=== PATIENT | male | born 1940 | race Caucasian/White ===

== ENCOUNTER 2023-04-29 08:57 | Outpatient (OUT) | payer MEDICARE, OTHER, SELFPAY ==
--- NOTE | 2023-04-29 09:35 | CA_ITS ---
Patient: JOSSELYN CLARKE Exam Date: 04/29/2023 : 1940 Gender:M Ordering : DR BEN DOHERTY Admission #: [id number] Family : Order #: [id number] CLICK HERE TO VIEW EXAM ECHOCARDIOGRAM REPORT PROCEDURE: CA ECHO DOPPLER COMPLETE INDICATIONS: Chronic diastolic heart failure, hypertension, diabetes, CABGx3 COMPARISON: None. DESCRIPTION: COMPLETE ECHOCARDIOGRAM Real-time transthoracic echocardiography with 2D, M-mode, spectral and color flow Doppler performed. QUALITY: Technical quality was good. LEFT VENTRICLE: Normal chamber size. Proximal septal hypertrophy (sigmoid septum). LV EF: Normal left ventricular ejection fraction, (>55%). No significant valvular abnormalities. DIASTOLIC: Normal diastolic function. ATRIAL SEPTUM: Visually appears intact. LEFT ATRIUM: Normal chamber size. RIGHT ATRIUM: Normal chamber size. RIGHT VENTRICLE: Normal chamber size. Normal right ventricular systolic function. TRICUSPID VALVE: Normal mobility and thickness. Mild to moderate regurgitation. Doppler studies reveal moderately (45-60) elevated right sided pressures. RVSP 47 mmHg MITRAL VALVE: Normal mobility and thickness. No evidence of mitral valve stenosis. Mild mitral annular calcification. Mild mitral regurgitation. AORTIC VALVE: Normal trileaflet appearance. Mildly calcified aortic valve. Normal leaflet mobility. No evidence of aortic valve stenosis. No aortic regurgitation. AORTIC ROOT: Normal diameter and appearance. PULMONIC VALVE: Normal thickness and mobility. No stenosis. Mild regurgitation. PERICARDIUM: No evidence of pericardial effusion. IVC: Collapses with inspirations. CONCLUSION: 1. Global left ventricular systolic function is normal; visually estimated ejection fraction is 60 to 65% 2. Normal diastolic function 3. The right ventricle is normal in size and systolic function 4. Mild to moderate tricuspid regurgitation 5. Moderately elevated right ventricular systolic pressure 6. Mild pulmonic regurgitation Adult Echocardiography Procedure Report Left Ventricle LVEDD (3.7 - 5.6 cm): 4.64 cm LVESD (2.2 - 4.0 cm): 3.14 cm LVIVS thickness (0.6 - 1.2 cm): 2.05 cm LVPW thickness (0.5 - 1.0 cm): 1.01 cm e': 0.08 m/s E - e': 7.25 LVOT Max Gradient: 2.50 mm[Hg] LVOT Area (cm2): 0.79 m/s Peak Velocity (LVOT): 0.79 m/s Mean Velocity (LVOT): 0.52 m/s LVOT Diameter 2.49 cm Left Atrium LA Volume Index (2D A2C): 28.80 ml/m2 Left Atrium Systolic Dimension: 3.63 cm Mitral Valve MV E to A Ratio: 0.63 Mitral Valve A-Wave Peak Velocity: 0.92 m/s Mitral Valve E-Wave Peak Velocity: 0.58 m/s Right Ventricle Aorta AO Root Diam: 3.51 cm Ascending Ao Diam: 3.15 cm Aortic Valve AoV Area (Peak Javed): 3.11 cm2, 3.11 cm2 AoV Area (VTI): 3.77 cm2, 3.77 cm2 Peak Velocity(Antegrade Flow): 1.24 m/s Peak Gradient(Antegrade Flow): 6.18 mm[Hg] Mean Velocity(Antegrade Flow): 0.84 m/s Mean Gradient(Antegrade Flow): 3.20 mm[Hg] Velocity Time Integral: 23.88 cm Tricuspid Valve Peak Velocity (Regurgitant Flow): 3.02 m/s, 2.87 m/s, 3.31 m/s Pulmonic Valve Peak Velocity: 1.18 m/s Peak Gradient: 5.90 mm[Hg], 5.29 mm[Hg] Right Atrium Right Atrium Systolic Pressure: 62.70 ml, 62.70 ml Dictated by: Delonte Parada M.D. on 04/29/2023 at 15:01 Approved by: Delonte Parada M.D. on 04/29/2023 at 15:06
--- NOTE | 2023-04-29 09:58 | CT_ITS ---
The [address] [address] Patient Name: JOSSELYN CLARKE MRN: [id number] date: 1940 Sex: M Assigned Patient Location: CARD Current Patient Location: CARD Accession/Order Number: [id number] Exam Date: 04/29/2023 09:48 Report Date: 04/29/2023 10:10 At the request of: BEN JUAREZ Procedure: CT head/brain wo con CT head/brain wo con, 04/29/2023 9:48 AM EDT, OH001 INDICATION: Increased Frequency Of Headache R51.9 COMPARISON: None. TECHNIQUE: CT images of the brain from skull base to vertex, including portions of the face and sinuses, were obtained without contrast. Supplemental 2D reformatted images were generated and reviewed as needed. Dose reduction techniques were achieved by using automated exposure control and/or adjustment of mA and/or kV according to patient size and/or use of iterative reconstruction technique. FINDINGS: The ventricles and sulci are within normal limits for the patient's age. There are nonspecific foci of signal alteration within the white matter most likely representing mild chronic microvascular ischemic change. No mass effect, acute hemorrhage, midline shift, hydrocephalus or exta-axial fluid collection. The basal cisterns are patent. The calvarium appears intact. There is marked mucosal thickening throughout the ethmoid sinuses, and slight mucosal thickening in the frontal sinus, sphenoid sinus and right maxillary antrum. No definite air-fluid level is seen. The mastoids are clear. CT/CT head/brain wo con IMPRESSION: No CT evidence of acute intracranial abnormality. Moderate paranasal sinus disease. Electronically authenticated by: ABDI CARDOZO Date: 04/29/2023 10:10
== END 2023-04-29 08:58 | disposition home or self-care (01) ==
LOC: CARD 08:57
PROVIDERS: PCP Internal Medicine; Visit Provider Physician Assistant
DX: R51.9 Headache, unspecified (principal); I11.0 Hypertensive heart disease with heart failure; I50.32 Chronic diastolic (congestive) heart failure; I07.1 Rheumatic tricuspid insufficiency
CPT/HCPCS: 70450; 93306

== ENCOUNTER 2023-08-24 14:09 | Outpatient (OUT) | payer MEDICARE, OTHER, SELFPAY ==
--- NOTE | 2023-08-24 14:22 | XR_ITS ---
The [address] [address] Patient Name: JOSSELYN CLARKE MRN: [id number] date: 1940 Sex: M Assigned Patient Location: [facility] Current Patient Location: Accession/Order Number: [id number] Exam Date: 08/24/2023 14:38 Report Date: 08/25/2023 22:30 At the request of: KELSY BROWN Procedure: XR lumbar spine 2-3V EXAM: XR lumbar spine 2-3V HISTORY: Chronic Low Back Pain Right Sciatica M54.41 COMPARISON: None. TECHNIQUE: 2 view lumbar spine FINDINGS: There are 5 nonrib-bearing lumbar-type vertebral bodies. Imaged sacroiliac joints are intact. Mild anterior wedging at L1. Vertebral body alignment is preserved. Multilevel degenerative disc disease most severe at L4-5 and L5-S1. Incidental note of aortic vascular calcification. Diffuse facet arthrosis most severe at the lower lumbar levels. XR/XR lumbar spine 2-3V IMPRESSION: Multilevel degenerative disc disease most severe at L4-5 and L5-S1. Electronically authenticated by: LEAH GARRETT Date: 08/25/2023 22:30
== END 2023-08-24 14:10 | disposition home or self-care (01) ==
LOC: RAD 14:11
PROVIDERS: PCP Internal Medicine; Visit Provider Internal Medicine
DX: M54.41 Lumbago with sciatica, right side (principal); G89.29 Other chronic pain; M51.36 Other intervertebral disc degeneration, lumbar region
CPT/HCPCS: 72100

== ENCOUNTER 2025-05-22 15:42 | Emergency (ER) | payer MEDICARE, OTHER, SELFPAY ==
[2025-05-22 15:50] VITALS: BP 160/64; PULSE 61; TEMP 36.4; O2SAT 95; BMI 32.5
--- NOTE | 2025-05-22 17:20 | ED.GENADUL1 ---
HPI HPI - General Adult General Chief complaint: Extremity Problem, Nontraumatic Stated complaint: CELLULITUS ON BOTH LEGS/ FEELS DIZZY Time Seen by Provider: 05/22/25 17:13 Source: patient Mode of arrival: walk-in History of Present Illness HPI narrative: 85-year-old male presents to the emergency department for red areas on both legs. His is worried he has a skin infection. He has not come into contact with any chemicals or cleaning agents and has not used any new substances or medications. She noticed them within the last day. No drainage or fever or pain. Related Data Previous Rx's ?Medication ?Instructions ?Recorded amoxicillin 875 mg-potassium 1 tab PO BID #14 tabs 05/22/25 clavulanate 125 mg tablet Allergies Allergy/AdvReac Type Severity Reaction Status Date / Time clonidine (From [employer] Allergy Severe Rash Verified 05/22/25 15:56 Review of Systems ROS Narrative A ten point review of systems is negative except as noted above. PFSH PFSH Social History Little interest or pleasure in doing things: not at all Feeling down, depressed, or hopeless: not at all Exam Narrative Exam Narrative: Nurses note and vital signs reviewed and patient is not hypoxic. General: The patient appears in no apparent distress. Patient is resting comfortably on cart. Skin: Warm, dry, no pallor noted. There are 2 well-defined areas of erythema on each of the lower extremities. They are not raised or tender or fluctuant and there is no drainage. They are mostly anterior. Head: Normocephalic, atraumatic Eye: Normal conjunctiva, no drainage Ears, Nose, Mouth, and Throat: oral mucosa is moist. Nares patent. Cardiovascular: Regular Rate and Rhythm Respiratory: Patient is in no distress, no accessory muscle use, lungs are clear to auscultation, no wheezing, rales or rhonchi Back: non-tender GI: Soft and nontender Musculoskeletal: The patient has no evidence of calf tenderness, no pitting edema, symmetrical pulses noted bilaterally Neurological: A&O x4, normal speech Psychiatric: Cooperative Constitutional Vital Signs, click to edit/add: Last Vital Signs Temp 97.5 F L 05/22/25 15:50 Pulse 61 05/22/25 15:50 Resp 20 05/22/25 15:50 BP 160/64 H 05/22/25 15:50 Pulse Ox 95 05/22/25 15:50 O2 Del Method Room Air 05/22/25 15:50 Course Vital Signs Vital signs: Vital Signs Temperature 97.5 F L 05/22/25 15:50 Pulse Rate 61 05/22/25 15:50 Respiratory Rate 20 05/22/25 15:50 Blood Pressure 160/64 H 05/22/25 15:50 Pulse Oximetry 95 05/22/25 15:50 Oxygen Delivery Method Room Air 05/22/25 15:50 Temperature 97.5 F L 05/22/25 15:50 Pulse Rate 61 05/22/25 15:50 Respiratory Rate 20 05/22/25 15:50 Blood Pressure 160/64 H 05/22/25 15:50 Pulse Oximetry 95 05/22/25 15:50 Oxygen Delivery Method Room Air 05/22/25 15:50 Medical Decision Making MDM Narrative Medical decision making narrative: Blood work is essentially normal. He was given IV Ancef and is discharged home on Augmentin. He will follow-up with his doctor in a day or 2. The possibility that this is not cellulitis was discussed. Differential Diagnosis Differential Diagnosis: Cellulitis, rash, contact dermatitis Lab Data Lab results reviewed: Yes I reviewed the patient's lab results Labs: Lab Results 05/22/25 Range/Units 17:35 WBC 8.3 (4.0-11.0) 10^3/uL RBC 3.73 L (4.70-6.10) 10^6/uL Hgb 12.0 L (14.0-18.0) g/dL Hct 34.6 L (42.0-54.0) % MCV 92.8 (80.0-94.0) fL MCH 32.2 (25.9-34.0) pg MCHC 34.7 (29.9-35.2) g/dL RDW 13.3 (11.0-15.0) % Plt Count 160 (150-450) 10^3/uL MPV 9.1 L (9.5-13.5) fL Neut % (Auto) 58.5 (43.0-75.0) % Lymph % (Auto) 22.0 (20.5-60.0) % [place] % (Auto) 14.0 H (1.7-12.0) % Eos % (Auto) 4.5 (0.9-7.0) % Baso % (Auto) 0.8 (0.2-2.0) % Neut # (Auto) 4.9 (1.4-6.5) 10^3/uL Lymph # (Auto) 1.8 (1.2-3.8) 10^3/uL [place] # (Auto) 1.2 H (0.3-0.8) 10^3/uL Eos # (Auto) 0.4 (0.0-0.7) 10^3/uL Baso # (Auto) 0.1 (0.0-0.1) 10^3/uL Abs Immat Gran (auto) 0.02 (0.00-0.03) 10^3/uL Imm/Tot Granulo (auto) 0.2 (0.0-0.5) % Sodium 142 (136-145) mmol/L Potassium 4.0 (3.5-5.1) mmol/L Chloride 105 (98-107) mmol/L Carbon Dioxide 28.7 (21.0-32.0) mmol/L Anion Gap 12.3 BUN 31.0 H (7.0-18.0) mg/dL Creatinine 1.50 H (0.70-1.30) mg/dL Est GFR ( Amer) 54 L (>=60 mL/min/1.73m^2) Est GFR (Non-Af Amer) 44 L (>=60 mL/min/1.73m^2) BUN/Creatinine Ratio 20.7 Glucose 113 H (74-106) mg/dL Calcium 9.2 (8.5-10.1) mg/dL Discharge Plan Discharge Chief Complaint: Extremity Problem, Nontraumatic Clinical Impression: Cellulitis Patient Disposition: Home, Self-Care Time of Disposition Decision: 18:40 Condition: Good Mode of Transportation: Private Vehicle Prescriptions / Home Meds: New amoxicillin-pot clavulanate 875-125 mg tablet 1 tab PO BID Qty: 14 0RF Print Language: Czech Instructions: Cellulitis (ED) Additional Instructions: Follow-up with your doctor in 1 to 2 days. Return if symptoms worsen. Referrals: KELSY BROWN [Primary Care Provider, Internal Medicine] - 1 week
--- OUTSIDE RECORDS SUMMARY | 2025-05-22 17:29 | XMS_ITS | CCD ---
Author Organization [facility] Care Team Providers Care Financial Analyst Accountant Name Role Phone PHYSICIAN, DEFAULT Unavailable Unavailable PHYSICIAN, DEFAULT Unavailable Unavailable ANN, DR DOMÍNGUEZ Admitting Unavailable ANN, DR DOMÍNGUEZ Attending Unavailable GASTON, BESSY HUNG Consulting Unavailable KEVIN, DR TIERNEY Primary Care Unavailable Gavin Najera Consulting Unavailable Gwendolyn Jackson Consulting Unavailable KEVIN, DR TIERNEY Primary Care Unavailable REQUEST, DR GORDON LISTED Admitting Unavaila ble REQUEST, DR GORDON LISTED Consulting Unavaila ble REQUEST, DR GORDON LISTED Attending Unavaila issa ROSARIO, DR TIERNEY Primary Care Unavailable REQUEST, NONE LISTED Admitting Unavaila ble REQUEST, NONE LISTED Consulting Unavaila ble REQUEST, DR GORDON LISTED Attending Unavaila issa ROSARIO, DR TIERNEY Primary Care Unavailable JAROCHO, DR DERRELL Houston Admitting Unavailable ENGELESilvia, DR DERRELL Houston Consulting Unavailable JAROCHO, DR DERRELL Houston Attending Unavailable KEVIN, DR TIERNEY Primary Care Unavailable KEVIN, DR TIERNEY Consulting Unavailable KEVIN, DR TIERNEY Attending Unavailable KEVIN, DR TIERNEY Admitting Unavailable HOWIE ROSARIO Primary Care Unavailable PETER CARDOZO Referring Unavailable Howie Rosario MD Primary Care Provider [phone] Howie Rosario MD Unavailable Venecia Bazan RN Unavailable [phone] HOWIE ROSARIO Primary Care Physician [phone] Jyoti Holder LPN Unavailable JANA HALL Attending Unavailable AMISHA MONZON Attending Unavailable HOWIE ROSARIO Attending Unavailable AMISHA MONZON Attending Unavailable HOWIE ROSARIO Attending Unavailable HWOIE ROSARIO Attending Unavailable HOWIE ROSARIO Attending Unavailable AMISHA MONZON Attending Unavailable JANA HALL Attending Unavailable HOWIE ROSARIO Attending Unavailable Allergies Allergy Classification Reported Allergen(s) Allergy Type Date of Onset Reaction(s) Facility Amino Acids (1 source) Amino Acids Drug Allergy 3 [facility] Flupenthixol (1 source) Flupenthixol Drug Allergy 3 [facility] (20 sources) cloNIDine; Translations: [clonidine topical] Drug Allergy 3 [facility] Comment on above: skin blisters at pat site (20 sources) Lisinopril Propensity to adverse reactions 3 Unknown, Cough, Other [facility] (20 sources) Clonidine Derivatives Drug Intolerance 3 Rash [facility] Work Phone: (1 source) Lisinopril; Translations: [lisinopril] Drug Allergy [facility] Comment on above: cough Medications Current Medications Medication Drug Class(es) Dates Sig (Normalized) Sig (Original) amLODIPine 5 mg oral tablet (20 sources) Dihydropyridine Calcium Channel Celso Start: 02-10-2012 End: 11-06-2024 amLODIPine (Norvasc) 5 MG tablet Indications: Benign essential hypertension TAKE 1 TABLET DAILY 100 tablet 3 10/11/2024 Active ascorbic acid 226 mg / beta carotene 49236 unt / cuprous oxide 0.8 mg / dl-alpha tocopheryl acetate 200 unt / zinc oxide 34.8 mg oral capsule (20 sources) Vitamin C Multiple Vitamins-Minerals (PreserVision AREDS) capsule every 12 (twelve) hours. Active aspirin 81 mg oral capsule (20 sources) Platelet Aggregation Inhibitor, Nonsteroidal Anti-inflammatory Drug Start: 09-01-2021 aspirin 81 mg oral capsule 162 mg = 2 cap(s), Oral Start Date: 09/01/21 Status: Ordered Repeat number: 1 Start: 02-10-2012 take 1 tablet by jeane th once daily aspirin 162 mg oral enteric coated tablet 162 mg = 1 tab(s), Oral, Daily, tab(s), Refills(s) 0, Other (see comment) Start Date: 02/10/12 Status: Ordered Repeat number: 1 take 1 tablet by jeane th in the morning aspirin EC 81 MG EC tablet Take 81 mg by mouth in the morning. Active carvedilol 25 mg oral tablet (20 sources) alpha-Adrenergic Celso, beta-Adrenergic Celso Start: 07-14-2023 End: 07-13-2024 carvedilol (Coreg) 25 MG tablet Indications: Hypercholesterolemia , Benign essential hypertension TAKE 1 TABLET EVERY MORNING AND 1 TABLET EVERY EVENING WITH MEALS 200 tablet 3 07/13/2024 Active Start: 02-10-2012 take 1 tablet by jeane th twice daily Coreg 25 mg Tab 25 mg = 1 tab(s), Oral, BID, Refills(s) 0, Other (see comment) Start Date: 02/10/12 Status: Ordered Repeat number: 1 Continuous Glucose Sensor (FreeStyle Jason 2 Sensor) [facility] (7 sources) Start: 07-26-2024 End: 10-24-2024 Continuous Glucose Sensor (FreeStyle Jason 2 Sensor) [facility] [place] Indications: Type 2 diabetes mellitus with peripheral vascular disease (CMS/HCC) 1 Units every 14 (fourteen) days 6 each 3 07/26/2024 10/24/2024 Active desonide 0.5 mg/ml topical cream (20 sources) Corticosteroid Start: 11-19-2024 desonide (DesO tamara) 0.05 % cream Indications: Seborrheic dermatitis APPLY TOPICALLY TWO TIMES ADAY 60 g 3 11/19/2024 Active Start: 08-24-2023 desonide (DesO tamara) 0.05 % cream Indications: Seborrheic dermatitis Apply topically 2 (two) times a day 60 g 3 08/20/2024 Active Start: 09-01-2021 desonide Top 0 .05% Crm Topical Start Date: 09/01/21 Status: Ordered Repeat number: 1 ferrous sulfate 325 mg oral tablet (20 sources) take 1 tablet by mouth at mealtime ferrous sulfate 325 (65 Fe) MG tablet Take 325 mg by mouth in the morning. Take with meals. Active hydroCHLOROthiazide 12.5 mg / irbesartan 150 mg oral tablet (1 source) Thiazide Diuretic, Angiotensin 2 Receptor Celso Star t: 0 03-24 12 take 1 tablet by mouth once daily Avalide 150 mg-12.5 mg oral tablet 1 tab(s), Oral, Daily, Refill(s) 0, High blood pressure Start Date: 02/10/12 Status: Ordered Repeat number: 1 hydroCHLOROthiazide 25 mg / losartan potassium 100 mg oral tablet (20 sources) Thiazide Diuretic, Angiotensin 2 Receptor Celso Star t: 01-04 End: 10-25 losartan-hydroCHLOROthia zide (Hyzaar) 100-25 MG tablet Indications: Benign essential hypertension TAKE 1 TABLET DAILY 90 tablet 3 01/09/2025 Active insulin aspart protamine, human 70 unt/ml / insulin aspart, human 30 unt/ml injectable suspension (20 sources) Insulin Analog Star t: 11-22 End: 11-22 insulin aspart protamine-insulin aspart (NovoLOG MIX 70/30) (70-30) 100 UNIT/ML injection Indications: Type 2 diabetes mellitus with diabetic polyneuropathy, with long-term current use of insulin (HCC) , Type 2 diabetes mellitus with foot ulcer, with long-term current use of insulin (HCC) , Type 2 diabetes mellitus with peripheral vascular disease (HCC) Inject 100 Units under the skin in the morning and 100 Units in the evening. Inject with meals. 180 mL 3 03/07/2024 03/07/2025 Active NovoLog (1 source) Insulin Analog Star t: 05-06 NovoLog Refills(s) 0 Start Date: 05/18/19 Status: Ordered Repeat number: 1 ipratropium bromide 0.042 mg/actuat metered dose nasal spray (20 sources) Anticholinergic Star t: 06-05 End: 06-05 ipratropium (Atrovent) 0.06 % nasal spray Indications: Nasal congestion with rhinorrhea Administer 2 sprays into each nostril in the morning and 2 sprays at noon and 2 sprays in the evening and 2 sprays before bedtime. 15 mL 11 06/23/2023 Active Iron Chews (1 source) Star t: 05-06 Iron Chews Refills(s) 0 Start Date: 05/18/19 Status: Ordered Repeat number: 1 lidocaine 0.04 mg/mg medicated patch (11 sources) Antiarrhythmic, Amide Local Anesthetic Star t: 08-06 End: 08-05 apply 1 dose transdermal route in the morning Lidocaine 4 % patch Indications: Chronic right-sided low back pain with right-sided sciatica Apply 1 patch topically in the morning. 90 patch 3 08/24/2023 08/23/2024 Active metFORMIN hydrochloride 500 mg oral tablet (20 sources) Biguanide Star t: 03-24 12 End: 09-24 metFORMIN (Glucophage) 500 MG tablet Indications: Diabetic peripheral neuropathy associated with type 2 diabetes mellitus (HCC) TAKE 1 TABLET IN THE MORNING AND 1 TABLET IN THE EVENING WITH MEALS 180 tablet 3 11/19/2024 Active nitroglycerin 0.4 mg sublingual tablet (2 sources) Nitrate Vasodilator Star t: 02-04 End: 02-04 nitroglycerin (Nitrostat) 0.4 MG SL tablet Indications: Coronary artery disease involving [place] coronary artery of [place] heart without angina pectoris Place 1 tablet (0.4 mg) under the tongue every 5 (five) minutes if needed for chest pain May repeat every 5 minutes for up to 3 doses. 100 tablet 11 02/25/2025 02/25/2026 Active simvastatin 40 mg oral tablet (20 sources) HMG-CoA Reductase Inhibitor Star t: 03-24 simvastatin (Zocor) 40 MG tablet Indications: Hypercholesterolemia TAKE 1 TABLET AT BEDTIME 90 tablet 3 11/19/2024 Active Completed/Discontinued Medications Medication Drug Class(es) Dates Sig (Normalized) Sig (Original) furosemide 20 mg oral tablet (20 sources) Loop Diuretic Start: 06-28-2019 End: 02-25-2025 take 1 tablet by mouth once daily as needed furosemide (Lasix) 20 MG tablet Indications: Chronic diastolic heart failure (HCC) Take 1 tablet (20 mg) by mouth Daily as needed (Swelling). 100 tablet 1 04/20/2023 02/25/2025 Discontinued (Reorder) Problems Active Problems Problem Classification Problem Date Documented Date Episodic/Chronic Acquired foot deformities (20 sources) Acquired hammer toe of left foot; Translations: [Other hammer toe(s) (acquired), left foot] Onset: 01-13-2023 01-13-2023 Chronic Acquired foot deformities (20 sources) Acquired hammer toe of right foot; Translations: [Other hammer toe(s) (acquired), right foot] Onset: 01-13-2023 01-13-2023 Chronic Acute myocardial infarction (1 source) Myocardial infarction 06-18-2019 Chronic Administrative/social admission (2 sources) Patient encounter status; Translations: [Other specified counseling] 02-25-2025 Episodic Cancer of prostate (20 sources) Malignant neoplasm of prostate; Translations: [Malignant tumor of prostate] Onset: 02-03-2021 Chronic Cancer of prostate (1 source) History of malignant neoplasm of prostate 07-29-2020 Episodic Chronic kidney disease (4 sources) Chronic kidney disease stage 3A ; Translations: [Chronic kidney disease, stage 3a (HCC) ([facility]/HCC)] 08-20-2024 Chronic Chronic ulcer of skin (20 sources) Non-pressure chronic ulcer of other part of right foot limited to breakdown of skin; Translations: [Ulcer of other part of foot] Onset: 01-13-2023 01-13-2023 Chronic Congestive heart failure; nonhypertensive (20 sources) Chronic diastolic heart failure; Translations: [Chronic diastolic (congestive) heart failure] Onset: 01-13-2023 01-13-2023 Chronic Coronary atherosclerosis and other heart disease (20 sources) Coronary atherosclerosis; Translations: [Atherosclerotic heart disease of [place] coronary artery without angina pectoris] Onset: 03-17-2013 Resolved: 09-26-2023 01-13-2023 Chronic Coronary atherosclerosis and other heart disease (1 source) Presence of aortocoronary bypass graft; Translations: [PRESENCE AORTOCORONARY BYPASS GRAFT] Onset: 03-24-2021 Episodic Deficiency and other anemia (1 source) Anemia 06-18-2019 Episodic Diabetes mellitus with complications (20 sources) Peripheral neuropathy due to type 2 diabetes mellitus; Translations: [Type 2 diabetes mellitus with diabetic polyneuropathy] Onset: 04-05-2016 03-01-2023 Chronic Diabetes mellitus without complication (2 sources) Type 2 diabetes mellitus without complications; Translations: [Diabetes mellitus] Onset: 03-24-2021 06-18-2019 Chronic Disorders of lipid metabolism (20 sources) Pure hypercholesterolemia, unspecified; Translations: [Hypercholesterolemia ] Onset: 03-24-2021 01-13-2023 Chronic Essential hypertension (20 sources) Essential (primary) hypertension; Translations: [Benign essential hypertension] Onset: 03-24-2021 01-13-2023 Chronic Genitourinary symptoms and ill-defined conditions (1 source) Urge incontinence of urine 09-01-2021 Chronic Hyperplasia of prostate (20 sources) Lower urinary tract symptoms due to benign prostatic hypertrophy; Translations: [Benign prostatic hyperplasia with lower urinary tract symptoms] Onset: 01-13-2023 3 Chronic Mycoses (3 sources) Onychomycosis; Translations: [Tinea unguium] 06-07-2024 Episodic Neoplasms of unspecified nature or uncertain behavior (2 sources) Neoplastic disease; Translations: [Neoplasm of unspecified behavior of bone, soft tissue, and skin] 07-05-2024 Episodic Osteoarthritis (1 source) Arthritis 06-18-2019 Chronic Other aftercare (1 source) group home (current) use of aspirin; Translations: [CARE HOME CURRENT USE OF ASPIRIN] Onset: 03-24-2021 Episodic Other aftercare (1 source) Other senior electronics engineer (current) drug therapy; Translations: [OTH CARBONIZER TESTER CURRENT DRUG THERAPY] Onset: 03-24-2021 Episodic Other aftercare (1 source) group home (current) use of insulin; Translations: [CARBONIZER TESTER CURRENT USE OF INSULIN] Onset: 03-24-2021 Episodic Other and ill-defined cerebrovascular disease (20 sources) Cerebral ischemia; Translations: [Cerebral ischemia] Onset: 06-03-2016 03-01-2023 Chronic Other and ill-defined heart disease (1 source) Heart disease 06-18-2019 Chronic Other circulatory disease (1 source) Personal history of transient ischemic attack (TIA), and cerebral infarction without residual deficits; Translations: [PERS HX TIA AND CI NO RESID DEFICIT] Onset: 03-24-2021 Episodic Other ear and sense organ disorders (20 sources) Hearing loss; Translations: [Unspecified hearing loss, unspecified ear] Onset: 01-13-2023 01-13-2023 Chronic Other endocrine disorders (20 sources) Hypoglycemia; Translations: [Hypoglycemia, unspecified] Onset: 02-28-2018 01-13-2023 Chronic Other inflammatory condition of skin (20 sources) Rosacea; Translations: [Rosacea, unspecified] Onset: 01-13-2023 01-13-2023 Chronic Other lower respiratory disease (4 sources) Dyspnea, unspecified; Translations: [DYSPNEA UNSPECIFIED] Onset: 03-31-2021 Episodic Other lower respiratory disease (4 sources) Shortness of breath; Translations: [SHORTNESS OF BREATH] Onset: 03-20-2021 Episodic Other lower respiratory disease (1 source) Other forms of dyspnea; Translations: [OTHER FORMS OF DYSPNEA] Onset: 03-24-2021 Episodic Other male genital disorders (20 sources) Secondary erectile dysfunction; Translations: [Male erectile dysfunction, unspecified] Onset: 01-13-2023 01-13-2023 Chronic Other nervous system disorders (20 sources) Difficulty walking; Translations: [Difficulty in walking, not elsewhere classified] Onset: 01-13-2023 01-13-2023 Chronic Other nervous system disorders (20 sources) Peripheral nerve disease ; Translations: [Polyneuropathy, unspecified] Onset: 02-17-2017 03-01-2023 Chronic Other nutritional; endocrine; and metabolic disorders (20 sources) Body mass index 30+ - obesity; Translations: [Obesity, unspecified] Onset: 01-13-2023 01-13-2023 Chronic Other skin disorders (2 sources) Dystrophia unguium; Translations: [Nail dystrophy] 06-07-2024 Episodic Other skin disorders (2 sources) Seborrheic keratosis; Translations: [Other seborrheic keratosis] 07-05-2024 Episodic Other skin disorders (2 sources) Inflamed seborrheic keratosis; Translations: [Inflamed seborrheic keratosis] 07-05-2024 Episodic Other skin disorders (2 sources) Actinic keratosis; Translations: [Actinic keratosis] 07-05-2024 Episodic Other skin disorders (2 sources) Lentiginosis; Translations: [Other melanin hyperpigmentation] 07-05-2024 Episodic Peripheral and visceral atherosclerosis (20 sources) Atherosclerosis of artery of lower limb; Translations: [Unspecified atherosclerosis of [place] arteries of extremities, bilateral legs] Onset: 01-13-2023 01-13-2023 Chronic Residual codes; unclassified (1 source) H/O: anticoagulant therapy 06-28-2019 Episodic Screening and history of mental health and substance abuse codes (2 sources) Personal history of nicotine dependence; Translations: [Ex-smoker] Onset: 03-24-2021 06-28-2019 Episodic Spondylosis; intervertebral disc disorders; other back problems (20 sources) Degeneration of lumbar intervertebral disc; Translations: [Degenerative disc disease, lumbar] Onset: 09-26-2023 09-26-2023 Chronic Past or Other Problems Problem Classification Problem Date Documented Date Episodic/Chronic Acquired foot deformities (20 sources) Left foot drop; Translations: [Foot drop, left foot] Onset: 01-13-2023 01-13-2023 Episodic Biliary tract disease (20 sources) Cholelithiasis without obstruction; Translations: [Calculus of gallbladder without cholecystitis without obstruction] Onset: 06-03-2016 03-01-2023 Episodic Conditions associated with dizziness or vertigo (20 sources) Dizziness and giddiness; Translations: [Postural dizziness] Onset: 03-24-2021 01-13-2023 Episodic Genitourinary symptoms and ill-defined conditions (20 sources) Nocturia; Translations: [Nocturia] Onset: 01-13-2023 01-13-2023 Episodic Other inflammatory condition of skin (20 sources) Seborrheic dermatitis; Translations: [Seborrheic dermatitis, unspecified] Onset: 08-24-2023 08-24-2023 Episodic Other lower respiratory disease (20 sources) Parietoalveolar pneumopathy; Translations: [Other alveolar and parieto-alveolar conditions] Onset: 01-13-2023 01-13-2023 Episodic Other nervous system disorders (20 sources) Ataxia; Translations: [Ataxia, unspecified] Onset: 01-13-2023 01-13-2023 Episodic Other non-epithelial cancer of skin (20 sources) 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; Translations: [Basal cell carcinoma of skin of nose] Onset: 01-13-2023 01-13-2023 Episodic Other screening for suspected conditions (not mental disorders or infectious disease) (20 sources) Prostate specific antigen abnormal ; Translations: [Elevated prostate specific antigen [PSA]] Onset: 01-13-2023 01-13-2023 Episodic Other upper respiratory disease (20 sources) Nasal congestion; Translations: [Nasal congestion] Onset: 06-23-2023 06-23-2023 Episodic Spondylosis; intervertebral disc disorders; other back problems (20 sources) Chronic low back pain; Translations: [Lumbago with sciatica, right side] Onset: 08-24-2023 08-24-2023 Episodic Unclassified (20 sources) Onset: 01-24-2023 01-24-2023 Results Test Name Value Interpretation Reference Range Facility Laboratory - Hematology and Cell countson 02-25-2025 HbA1c (Bld) [Mass fraction] 8 % [facility] No Panel Informationon 02-25 [facility] No Panel Informationon 10-03 Complexity: simple Destruction method: cryotherapy Informed consent: discussed and consent obtained Informed consent comment: The risks of the procedure were discussed, including, but not limited to risks of scarring, darker or sanitation supervisor pigmentary changes, recurrence, infection, and incomplete removal Timeout: patient name, date of , surgical site, and procedure verified Timeout comment: Patient and provider identified site. Site was marked. Photo was taken and shown to patient, patient verified this is the correct site. Anesthesia: the lesion was anesthetized in a standard fashion Anesthetic: 1% lidocaine w/ epinephrine 1-100,000 buffered w/ 8.4% NaHCO3 Lesion destroyed using liquid nitrogen: Yes Region frozen until ice ball extended beyond lesion: Yes Cryotherapy cycles: 2 Lesion length (cm): 1 Lesion width (cm): 0.8 Margin per side (cm): 0 Final wound size (cm): 1 Outcome: patient tolerated procedure well with no complications Post-procedure details: wound care instructions given Post-procedure details comment: Post-cryotherapy instructions were given verbally and in writing. The office will be contacted if the lesion fails to resolve despite treatment, or if a side effect develops such as abnormal crusting, scabbing, reddness, discharge, or tenderness. Additional details: Previous accession number: [id number] [facility] [employer] No Panel InformationOrdered By: Lou Bland on 10-03-2024 [facility] [employer] [facility] Work Phone: Laboratory - Hematology and Cell countson 08-20-2024 HbA1c (Bld) [Mass fraction] 8.6 % [facility] [facility] No Panel Informationon 08-20 [facility] [employer] [facility] No Panel Informationon 07-05 Type of biopsy: tangential Informed consent: discussed and consent obtained Informed consent comment: The risks and benefits of the biopsy were discussed. Risks include but are not limited to bleeding, infection, scarring, pain, and nerve damage. An opportunity to ask questions prior to the procedure was permitted and all questions were answered. Patient was prepped and draped in usual sterile fashion: area cleansed with alcohol. Anesthesia: the lesion was anesthetized in a standard fashion Anesthetic: 1% lidocaine w/ epinephrine 1-100,000 buffered w/ 8.4% NaHCO3 Instrument used: DermaBlade Hemostasis achieved with: electrodesiccation Outcome: patient tolerated procedure well Outcome comment: The specimen was placed in a prelabeled formalin container to be sent for pathology Post-procedure details: sterile dressing applied and wound care instructions given Post-procedure details comment: Emphasized need to contact clinic for any signs of infection, uncontrollable bleeding, or complications. Dressing type: bandage Additional details: Photo taken Amount of lidocaine used: 0.4 cc [facility] Laboratory - Hematology and Cell countson 05-14-2024 HbA1c (Bld) [Mass fraction] 7.9 % [facility] No Panel Informationon 05-14 [facility] US Venous, Unilat, Lower Ext Righton 07-01-2022 US Venous, Unilat, Lower Ext Right FINDINGS: The deep venous system of the right lower extremity exhibits full compressibility and normal flow augmentation. These specifically include the common femoral, superficial femoral, and popliteal veins. No evidence of deep venous thrombosis is present. No cystic or soft tissue mass in the popliteal fossa. IMPRESSION: Normal venous sonogram. No deep venous thrombosis. Report reported and signed by Rickie Montague on 07/01/2022 [id number] Normal [facility] XR Knee Complete Right*on XR Knee Complete Right* FINDINGS: Arthroplasty hardware is appropriately aligned. No suprapatellar effusion is present. No cortical or orthopedic hardware fracture is seen. Prominent arterial calcifications. IMPRESSION: 1. Appropriately aligned arthroplasty hardware. 2. Prominent arterial calcifications. Report reported and signed by Rickie Montague on 07/02/2022 0707 Normal [facility] Complete Blood Count with Au to Diffon 10-05-2021 Basophils (Bld) [#/Vol] 0.07 10*3/uL Normal 0.00-0.20 [facility] Specialist Comment on above: Performed By: #### L IPD, CMP, CBCAD #### [facility] [address], [place] [id number] Basophils/100 WBC (Bld) 1.0 % Normal [facility] Comment on above: Performed By: #### L IPD, CMP, CBCAD #### [facility] [address], [place] [id number] Eosinophils (Bld) [#/Vol] 0.28 10*3/uL Normal 0.02-0.50 [employer] [place] [facility] Comment on above: Performed By: #### L IPD, CMP, CBCAD #### [facility] [address], [place] [id number] Eosinophils/100 WBC (Bld) 3.9 % Normal [facility] [employer] [facility] Comment on above: Performed By: #### L IPD, CMP, CBCAD #### [facility] [address], [place] [id number] Erythrocyte distribution width (RBC) [Ratio] 13.2 % Normal 11.0-15.0 [facility] [employer] Comment on above: Performed By: #### L IPD, CMP, CBCAD #### [facility] [address], [place] [id number] Hematocrit (Bld) [Volume fraction] 35.2 % Low 38.5-50.0 [facility] Manager Comment on above: Performed By: #### L IPD, CMP, CBCAD #### [facility] [address], [place] [id number] Hemoglobin (Bld) [Mass/Vol] 11.7 g/dL Low 13.0-17.1 [facility] Manager Comment on above: Performed By: #### L IPD, CMP, CBCAD #### [facility] [address], [place] [id number] Lymphocytes (Bld) [#/Vol] 1.1 10*3/uL Normal 0.9-3.9 [facility] Specialist Comment on above: Performed By: #### L IPD, CMP, CBCAD #### [facility] [address], [place] [id number] Lymphocytes/100 WBC (Bld) 15.8 % Normal [facility] [employer] [facility] Comment on above: Performed By: #### L IPD, CMP, CBCAD #### [facility] [address], [place] [id number] [facility] (RBC) [Entitic mass] 31.5 pg Normal 27.0-33.0 [facility] Hedis Manager Comment on above: Performed By: #### L IPD, CMP, CBCAD #### [facility] [address], [place] [id number] MCHC (RBC) [Mass/Vol] 33.2 g/dL Normal 32.0-36.[address] [facility] Comment on above: Performed By: #### L IPD, CMP, CBCAD #### [facility] [address], [place] [id number] MCV (RBC) [Entitic vol] 95 fL Normal 80-100 [facility] Specialist Comment on above: Performed By: #### L IPD, CMP, CBCAD #### [facility] [address], [place] [id number] Monocytes (Bld) [#/Vol] 0.8 10*3/uL Normal 0.2-0.9 [facility] Specialist Comment on above: Performed By: #### L IPD, CMP, CBCAD #### [facility] [address], [place] [id number] Monocytes/100 WBC (Bld) 11.0 % Normal [facility] Specialist Comment on above: Performed By: #### L IPD, CMP, CBCAD #### [facility] [address], [place] [id number] Neutrophils (Bld) [#/Vol] 4.8 10*3/uL Normal 1.5-7.8 [facility] Comment on above: Performed By: #### L IPD, CMP, CBCAD #### [facility] [address], [place] [id number] Neutrophils/100 WBC (Bld) 68.0 % Normal [facility] Specialist Comment on above: Performed By: #### L IPD, CMP, CBCAD #### [facility] [address], [place] [id number] Platelet mean volume (Bld) [Entitic vol] 9.90 fL Normal 7.50-12.50 [facility] Comment on above: Performed By: #### L IPD, CMP, CBCAD #### [facility] [address], [place] [id number] Platelets (Bld) [#/Vol] 180 10*3/uL Normal 140-400 [facility] Specialist Comment on above: Performed By: #### L IPD, CMP, CBCAD #### [facility] [address], [place] [id number] RBC (Bld) [#/Vol] 3.72 10*6/uL Low 4.20-5.80 [facility] [employer] Manager Comment on above: Performed By: #### L IPD, CMP, CBCAD #### [facility] [address], [place] [id number] RDW-SD 45.8 fL Normal 37.0-50.0 [facility] [employer] Manager Comment on above: Performed By: #### L IPD, CMP, CBCAD #### [facility] [address], [place] [id number] WBC (Bld) [#/Vol] 7.1 10*3/uL Normal 3.8-11.0 [facility] Hed[employer] Manager Comment on above: Performed By: #### L IPD CMP, CBCAD #### [facility] [address], [place] [id number] Comprehensive Metabolic Pane antonio 10-05-2021 Albumin [Mass/Vol] 3.9 g/dL Normal 3.6-5.1 [facility] [employer] Manager Comment on above: Performed By: #### L IPD CMP, CBCAD #### [facility] [address], [place] [id number] Albumin/Globulin [Mass ratio] 2.2 {ratio} Normal 1.0-2.5 [facility] [employer] Manager Comment on above: Performed By: #### L IPD CMP, CBCAD #### [facility] [address], [place] [id number] ALP [Catalytic activity/Vol] 134 U/L High 40-129 [facility] [employer] Manager Comment on above: Performed By: #### L IPD, CMP, CBCAD #### [facility] [address], [place] [id number] ALT [Catalytic activity/Vol] 17 U/L Normal 9-46 [facility] [employer] Manager Comment on above: Result Comment: 08/05 Female reference range changed. Performed By: #### L IPD, CMP, CBCAD #### [facility] [address], [place] [id number] Anion gap [Moles/Vol] 14 mmol/L Normal 12-20 [facility] Hed[employer] Manager Comment on above: Result Comment: Effe ctive 09/10/2019 reference range changed. Performed By: #### L IPD, CMP, CBCAD #### [facility] [address], [place] [id number] AST [Catalytic activity/Vol] 22 U/L Normal 10-40 [facility] Comment on above: Performed By: #### L IPD, CMP, CBCAD #### [facility] [address], [place] [id number] Bilirubin [Mass/Vol] 0.76 mg/dL Normal 0.30-1.20 [facility] Comment on above: Performed By: #### L IPD, CMP, CBCAD #### [facility] [address], [place] [id number] BUN/CREA 24 Ratio High 6-22 [facility] Comment on above: Performed By: #### L IPD, CMP, CBCAD #### [facility] [address], [place] [id number] Calcium [Mass/Vol] 9.1 mg/dL Normal 8.6-10.2 [facility] Comment on above: Performed By: #### L IPD, CMP, CBCAD #### [facility] [address], [place] [id number] Chloride [Moles/Vol] 103 mmol/L Normal 98-107 [facility] Comment on above: Performed By: #### L IPD, CMP, CBCAD #### [facility] [address], [place] [id number] CO2 [Moles/Vol] 27 mmol/L Normal 20-31 [facility] Comment on above: Performed By: #### L IPD, CMP, CBCAD #### [facility] [address], [place] [id number] Creatinine [Mass/Vol] 1.2 mg/dL Normal 0.7-1.[address] [facility] Comment on above: Performed By: #### L IPD, CMP, CBCAD #### [facility] [address], [place] [id number] eGFRAA 73 mL/min/1.73m2 Normal >60 [facility] Comment on above: Performed By: #### L IPD, CMP, CBCAD #### [facility] [address] [place], [place] [id number] eGFRNAA 60 mL/min/1.73m2 Low >60 [facility] [employer] Manager Comment on above: Performed By: #### L IPD, CMP, CBCAD #### [facility] [address], [place] [id number] Globulin (S) [Mass/Vol] 1.8 g/dL Low 1.9-3.7 [facility] [employer] Manager Comment on above: Performed By: #### L IPD, CMP, CBCAD #### [facility] [address], [place] [id number] Glucose [Mass/Vol] 128 mg/dL High 65-99 [facility] Manager Comment on above: Result Comment: For FASTING Glucose --- ADA reference ranges: Normal 65-99 mg/dl Prediabetes 100-125 Diabetes >/= 126 Performed By: #### L IPD, CMP, CBCAD #### [facility] [address], [place] [id number] Potassium [Moles/Vol] 4.0 mmol/L Normal 3.5-5.[address] [facility] Comment on above: Performed By: #### L IPD, CMP, CBCAD #### [facility] [address], [place] [id number] Protein [Mass/Vol] 5.7 g/dL Low 6.1-8.1 [facility] Hed[employer] Manager Comment on above: Performed By: #### L IPD, CMP, CBCAD #### [facility] [address], [place] [id number] Sodium [Moles/Vol] 140 mmol/L Normal 135-146 [facility] Hed[employer] Manager Comment on above: Performed By: #### L IPD, CMP, CBCAD #### [facility] [address], [place] [id number] Urea nitrogen [Mass/Vol] 28 mg/dL High 7-25 [facility] [employer] Manager Comment on above: Performed By: #### L IPD, CMP, CBCAD #### [facility] [address], [place] [id number] Lipid Panelon 10-05-2021 Cholesterol [Mass/Vol] 121 mg/dL Low 125-200 [facility] above: Result Comment: Low risk < 200mg/dL Borderline risk 201-239 mg/dl High risk > or equal to 240 Performed By: #### L NUSRAT CMP, CBCAD #### [facility] [address], [place] [id number] Cholesterol in HDL [Mass/Vol] 43 mg/dL Normal >40 [facility] Specialist Comment on above: Result Comment: High Cardiovascular Risk HDL <40 mg/dL Low Cardiovascular Risk HDL > or equal to 60 mg/dl Performed By: #### L NUSRAT, CMP, CBCAD #### [facility] [address], [place] [id number] Cholesterol in LDL [Mass/Vol] 62 mg/dL Normal [facility] Comment on above: Result Comment: LDL ATP III CLASSIFICATION LDL less than 100 mg/dl Optimal LDL 100-129 mg/dl Near or above optimal LDL 130-159 Borderline high LDL 160-189 High LDL greater than 189 mg/dl Very High Performed By: #### L NUSRAT CMP, CBCAD #### [facility] [address], [place] [id number] Cholesterol in VLDL [Mass/Vol] 16 mg/dL Normal [facility] Comment on above: Performed By: #### L NUSRAT CMP, CBCAD #### [facility] [address], [place] [id number] Cholesterol.total/Chol esterol in HDL [Mass ratio] 3 {ratio} Normal [facility] Comment on above: Performed By: #### L NUSRAT CMP, CBCAD #### [facility] [address], [place] [id number] Triglyceride [Mass/Vol] 80 mg/dL Normal 30-150 [facility] Specialist Comment on above: Result Comment: TRIG ATPIII CLASSIFICATIONS TRIG less than 150 mg/dl Normal TRIG 150-199 mg/dl Borderline High TRIG 200-500 mg/dl High TRIG greather than 500 mg/dl Very High Performed By: #### L IPD, CMP, CBCAD #### [facility] [address], [place] [id number] Ambulatory Clinical Summaryo n 09-01-2021 Ambulatory Clinical Summary {[id number] Kylie [facility] Patient Educationon 09-01-20 Patient Education Urology Benign Prostatic Hyperplasia Benign prostatic hyperplasia (BPH) is an enlarged prostate gland that is caused by the normal aging process and not by cancer. The prostate is a walnut-sized gland that is involved in the production of semen. It is located in front of the rectum and below the bladder. The bladder stores urine and the urethra is the tube that carries the urine out of the body. The prostate may get bigger as a man gets older. An enlarged prostate can press on the urethra. This can make it harder to pass urine. The build-up of urine in the bladder can cause infection. Back pressure and infection may progress to bladder damage and kidney (renal) failure. What are the causes? This condition is part of a normal aging process. However, not all men develop problems from this condition. If the prostate enlarges away from the urethra, urine flow will not be blocked. If it enlarges toward the urethra and compresses it, there will be problems passing urine. What increases the risk? This condition is more likely to develop in men over the age of 50 years. What are the signs or symptoms? Symptoms of this condition include: ? Getting up often during the night to urinate. ? Needing to urinate frequently during the day. ? Difficulty starting urine flow. ? Decrease in size and strength of your urine stream. ? Leaking (dribbling) after urinating. ? Inability to pass urine. This needs immediate treatment. ? Inability to completely empty your bladder. ? Pain when you pass urine. This is more common if there is also an infection. ? Urinary tract infection (UTI). How is this diagnosed? This condition is diagnosed based on your medical history, a physical exam, and your symptoms. Tests will also be done, such as: ? A post-void bladder scan. This measures any amount of urine that may remain in your bladder after you finish urinating. ? A digital rectal exam. In a rectal exam, your health care provider checks your prostate by putting a lubricated, gloved finger into your rectum to feel the back of your prostate gland. This exam detects the size of your gland and any abnormal lumps or growths. ? An exam of your urine (urinalysis). ? A prostate specific antigen (PSA) screening. This is a blood test used to screen for prostate cancer. ? An ultrasound. This test uses sound waves to electronically produce a picture of your prostate gland. Your health care provider may refer you to a specialist in kidney and prostate diseases (urologist). How is this treated? Once symptoms begin, your health care provider will monitor your condition (active surveillance or watchful waiting). Treatment for this condition will depend on the severity of your condition. Treatment may include: ? Observation and yearly exams. This may be the only treatment needed if your condition and symptoms are mild. ? Medicines to relieve your symptoms, including: ? Medicines to shrink the prostate. ? Medicines to relax the muscle of the prostate. ? Surgery in severe cases. Surgery may include: ? Prostatectomy. In this procedure, the prostate tissue is removed completely through an open incision or with a laparoscope or robotics. ? Transurethral resection of the prostate (TURP). In this procedure, a tool is inserted through the opening at the tip of the penis (urethra). It is used to cut away tissue of the inner core of the prostate. The pieces are removed through the same opening of the penis. This removes the blockage. ? Transurethral incision (TUIP). In this procedure, small cuts are made in the prostate. This lessens the prostate's pressure on the urethra. ? Transurethral microwave thermotherapy (TUMT). This procedure uses microwaves to create heat. The heat destroys and removes a small amount of prostate tissue. ? Transurethral needle ablation (TUNA). This procedure uses radio frequencies to destroy and remove a small amount of prostate tissue. ? Interstitial laser coagulation (ILC). This procedure uses a laser to destroy and remove a small amount of prostate tissue. ? Transurethral electrovaporization (TUVP). This procedure uses electrodes to destroy and remove a small amount of prostate tissue. ? Prostatic urethral lift. This procedure inserts an implant to push the lobes of the prostate away from the urethra. Follow these instructions at home: ? Take dhmk-nhw-pisuvpu and prescription medicines only as told by your health care provider. ? Monitor your symptoms for any changes. Contact your health care provider with any changes. ? Avoid drinking large amounts of liquid before going to bed or out in public. ? Avoid or reduce how much caffeine or alcohol you drink. ? Give yourself time when you urinate. ? Keep all follow-up visits as told by your health care provider. This is important. Contact a health care provider if: ? You have unexplained back pain. ? Your symptoms do not get better with treatment. ? You d (more content not included)... Normal [facility] Urology Office/Clinic Noteon 09-01-2021 Urology Office/Clinic Note Chief Complaint This is a 81 year old male with personal H/O prostate cancer, BPH w/LUTS and dysuria. HPI Staff 1 year with PSA. PSA 0.06 done 02/03/21. Previous PSA 0.13 done 01/24/20. S/P Brachytherapy done 06/14/18. Fatemeh score of 3+4=7. Pt. states Dr. Janneth jones not need to see him anymore. Pain with urination:No Blood in urine:No Incomplete bladder emptying:No Frequency:No Urgency:No Nocturia:1-2x's Stream:Strong Post-void dribbling:No Leaking before getting to the restroom:Occasionally Urinary incontinence without sensory awareness:No Temporarily unable to restrain urination with body movement:No Flank/Back pain:PT states he always has back pain. Abdominal pain:No History of Present Illness reviewed UA. Reviewed last encounter, reviewed oncology note. There have been no associated fever, chills, flank pain or blood in the urine. Review of Systems ROS - Provider Constitutional: denies weight loss, denies hot flashes. Eyes: denies eye problems. Gastrointestinal: denies nausea, denies vomiting. Cardiovascular: denies chest pain or angina. Integumentary: no dryness Musculoskeletal: denies musculoskeletal symptoms. ENMT: denies otolaryngeal symptoms. Respiratory: no shortness of breath. Heme/Lymph: denies easy bleeding tendency, denies easy bruising tendency. Psychiatric: no confusion, no anxiety. Genitourinary: denies dysuria, denies hematuria, denies discharge, denies urinary frequency, denies urinary hesitancy, denies nocturia, denies incontinence, denies genital sores, denies decreased libido, and denies erectile dysfunction. Physical Exam Vitals & Measurements HT: 182 cm HT: 182.0 cm WT: 104.2 kg WT: 104.2 kg BMI: 31.46 Flank Pain: none. Bladder: nonpalpable. Assessment/Plan This 81-year-old has had a very good result following brachytherapy implant in 2018. His PSA is now down to 0.06 ng/mL. He has stopped following with radiation oncology. He was to follow-up with his primary care physician and get his PSA once a year from his primary care physician. I stressed to the patient that is important that he continue to get his PSAs at least once a year. We talked about possible issues with bladder neck contractures versus strictures or other scarring issues related to radiation therapy. He states he will keep that in mind if there is any problems he will contact our office for follow-up visit. Urinalysis today is unremarkable. There is no evidence of infection. We will plan to see him back in the office on an as-needed basis. 1. Personal history of prostate cancer (Z85.46: Personal history of malignant neoplasm of prostate) S/P Brachytherapy done 06/2018, due to [place] 7 (3+4). Pt is no longer seeing Dr. Jessica. His last appointment with Dr. Jessica was02/13/2021. Recent PSA was done 02/03/2021 and was at 0.06. Pt will need to have a DANELLE and PSA done once a year, pt would like to see PCP for this at this time. At this time pt will be PRN, and he is to call our office if there is any issues that arise with urination. Ordered: Urnls Dip Stick Auto w/o Microscopy POC [id number] 2. BPH with urinary obstruction (N40.1: Benign prostatic hyperplasia with lower urinary tract symptoms) Pt is not voicing any urinary concerns at this time. Pt is not taking any BPH medications. UA is clear of any blood or infections. 3. Proteinuria (R80.9: Proteinuria, unspecified) UA shows TRACE in sample 4. Urge incontinence (N39.41: Urge incontinence) intermittent sx. 5. Nocturia (R35.1: Nocturia) 1-2x a night Other obstructive and reflux uropathy (N13.8: Other obstructive and reflux uropathy) I have reviewed the previous health record information and history for this patient from Dr. Peterson Follow-up With When Contact Information Nicholas Coleman MD, Clive Venegas URO Only if needed [facility] [address] [place] [address]- Additional Instructions: Patient Education Benign Prostatic Hyperplasia I, Leyda Bryant, personally scribed for Dr. Peterson on 09/01/2021 12:11:42. . Documentation recorded by the scribe, Leyda Bryant, accurately reflects the services(s) I performed and decisions made by me. Authenticated by Dr. Peterson on 09/01/2021 12:12:26. .. Problem List/Past Medical History Ongoing BPH with urinary obstruction Dysuria Former smoker Hx of assisted use of blood thinners Nocturia Personal history of prostate cancer Proteinuria Urge incontinence Historical Anemia Arthritis Diabetes Elevated PSA Heart disease Hyperlipidemia Hypertension Myocardial infarction Prostate cancer Procedure/Surgical History Seed implantation into prostate (06/14/2018), TRUS (transrectal ultrasound) guided cryoablation of prostate (03/23/2018), Back, cataract, Colonoscopy, Knee replacement, Tonsillectomy. Medications amLODIPine 5 mg Tab, 5 mg= 1 tab(s), Oral, Daily aspirin 162 mg o (more content not included)... Normal [facility] Comment on above: Result Comment: Elec tronically Signed By: Nicholas Coleman MD, Clive Venegas\.br\Date and Time Signed: 09/01/21 12:14 EST\.br\Electronically Co-Signed By: Leyda Bryant MA\.br\Date and Time Co-Signed: 09/01/21 12:12 EST Surgical Pathologyon 15-2 021 Surgical Pathology (NOTE) -- Diagnosis -- SKIN, LEFT LOWER EYELID, PUNCH BIOPSY: - SUPERFICIAL PORTIONS OF SKIN AND DERMIS WITH GRANULOMATOUS INFLAMMATION, SUGGESTIVE OF PORTIONS OF CHALAZION. Gerardo Prabhakar M.D., B.C. AP/CP, Dermatopathology Electronically Signed Out 08/24/2021 Clinical Information Pre-op Diagnosis: PT REPORTS A RED AREA ON HIS LEFT LOWER EYELID x 3 MOS, BASAL CELL CARCINOMA Operative Findings: LEFT LOWER EYELID Operation Performed: PUNCH Source of Specimen 1: LEFT LOWER EYELID Gross Description JOSSELYN ATKINSONERICKSON, LEFT LOWER EYELID 0.1 x 0.1 x < 0.1 cm piece of skin with a minute white punctate focus on it. Entirely 1cs. tm Microscopic Description Sections show squamous epithelium and superficial dermis with a brisk lymphoplasmacytic infiltrate with areas of noncaseating epithelioid granulomas. There is no evidence of atypia or malignancy. Sebaceous glands are not identified in the biopsy. SURGICAL PATHOLOGY CONSULTATION Patient Name: JOSSELYN FOX [facility] Rec: [id number] Path Number: [id number] [facility] ANATOM[facility] [address] [place] [id number] Normal [facility] Comment on above: Performed By: #### P PPVDP #### [address] [address] [employer] Officer: Jono Wu MD BNPon 03-20-2021 Natriuretic peptide B (Bld) [Mass/Vol] 508.0 pg/mL Normal <=1,800.0 [facility] Comment on above: Performed By: #### B COMMERCIAL CREDIT HEAD, CMP, HSTROPN #### [facility] [address] [place] [address] Luis Amada CBC AUTO DIFFon 03-20-2021 BASO # 0.0 103/ul Normal 0.0-0.1 [facility] Comment on above: Performed By: #### C BC #### [facility] [address] [place] [address] Luis Amada Basophils/100 WBC (Bld) 0.4 % Normal 0.2-2.0 [facility] Comment on above: Performed By: #### C BC #### [facility] [address] [place] [address] Luis Amada EO # 0.4 103/ul Normal 0.0-0.7 [facility] Comment on above: Performed By: #### C BC #### [facility] [address] [place], [place] [id number] Luis Amada Eosinophils/100 WBC (Bld) 3.4 % Normal 0.9-7.0 [facility] Comment on above: Performed By: #### C BC #### [facility] [address] [place] [address] Luis Amada Erythrocyte distribution width (RBC) [Ratio] 13.2 % Normal 11.0-15.[address] [facility] Comment on above: Performed By: #### C BC #### [facility] [address] [place] [address] Luis Amada Hematocrit (Bld) [Volume fraction] 33.3 % Critically low 42.0-54.[address] [facility] Comment on above: Performed By: #### C BC #### [facility] [address] [place] [address] Luis Amada Hemoglobin (Bld) [Mass/Vol] 11.4 g/dL Critically low 14.0-18.[address] [facility] Comment on above: Performed By: #### C BC #### [facility] [address] [place] [address] Luis Amada IG # 0.05 10e3/ul Critically high 0.00-0.03 [facility] Comment on above: Performed By: #### C BC #### [facility] [address] [place] [address] Luis Amada IG % 0.5 % Normal 0.0-0.[address] [facility] Comment on above: Performed By: #### C BC #### [facility] [address] [place] [address] Luis Amada LYMPH # 1.5 103/ul Normal 1.2-3.8 [facility] Comment on above: Performed By: #### C BC #### [facility] [address] [place] [address] Luis Amada Lymphocytes/100 WBC (Bld) 14.7 % Critically low 20.5-60.[address] [facility] Comment on above: Performed By: #### C BC #### [facility] [address] [place] [address] Luis Amada MANUAL DIFF REQ NO Normal [facility] Comment on above: Performed By: #### C BC #### [facility] [address] [place] [address] Luis Amada MCH (RBC) [Entitic mass] 31.2 pg Normal 25.9-34.0 [facility] Comment on above: Performed By: #### C BC #### [facility] [address] [place] [address] Luis Ybarra MCHC (RBC) [Mass/Vol] 34.2 g/dL Normal 29.9-35.2 [facility] Comment on above: Performed By: #### C BC #### [facility] [address] [place] [address] Luis Ybarra MCV (RBC) [Entitic vol] 91.2 fL Normal 80.0-94.[address] [facility] Comment on above: Performed By: #### C BC #### [facility] [address] [place] [address] Luis Ybarra MONO # 1.0 103/ul Critically high 0.3-0.8 [facility] Comment on above: Performed By: #### C BC #### [facility] [address] [place] [address] Luis Ybarra Monocytes/100 WBC (Bld) 10.2 % Normal 1.7-12.[address] [facility] Comment on above: Performed By: #### C BC #### [facility] [address] [place] [address] Luis Ybarra NEUT # 7.2 103/ul Critically high 1.4-6.5 [facility] Comment on above: Performed By: #### C BC #### [facility] [address] [place] [address] Luis Ybarra Neutrophils/100 WBC (Bld) 70.8 % Normal 43.0-75.0 [facility] Comment on above: Performed By: #### C BC #### [facility] [address] [address] [place], [place] [id number] Luis Ybarra Platelet mean volume (Bld) [Entitic vol] 8.9 fL Critically low 9.5-13.5 [facility] [place] [facility] Comment on above: Performed By: #### C BC #### [facility] [place] [facility] [address] [place] [address] Luis Ybarra PLT 172 103/ul Normal 150-450 [facility] [place] [facility] Comment on above: Performed By: #### C BC #### [facility] [place] [facility] [address] [place], [place] [address] Luis Ybarra RBC 3.65 106/ul Critically low 4.70-6.10 [facility] Comment on above: Performed By: #### C BC #### [facility] [place] [facility] [address] [place], [place] [address] Luis Ybarra WBC 10.2 103/ul Normal 4.0-11.[address] [facility] Comment on above: Performed By: #### C BC #### [facility] [place] [facility] [address] [place], [place] [address] Luis Ybarra CTA CHEST WO W CONon 021 CTA CHEST WO W CON EXAMINATION: CTA MIRNA ST WO W CON HISTORY: SHORTNESS OF BREATH COMPARISON: Chest radiograph 03/20/2021. No prior chest CT for comparison. TECHNIQUE: CT angiography of the chest following the administration of intravenous contrast. Coronal and sagittal MIP (maximum intensity projection) images were performed. Dose reduction techniques were achieved by using automated exposure control and/or adjustment of mA and/or kV according to patient size and/or use of iterative reconstruction technique. FINDINGS: CTA CHEST: No thoracic aortic aneurysm or dissection. Normal caliber of the main pulmonary artery. No filling defect identified within the main, lobar, evaluable portion of the segmental pulmonary arteries. Normal caliber of the main pulmonary artery. Heart is within normal limits in size. No pericardial effusion. Prior median sternotomy and CABG. No mediastinal, hilar, or axillary lymphadenopathy. No focal consolidative process or discrete pulmonary nodule. No pleural effusion or pneumothorax. Central airways are patent. Gallbladder wall calcifications are present. No suspicious osteolytic or osteoblastic lesion. IMPRESSION: 1. No evidence for acute pulmonary thromboembolic disease. No thoracic aortic aneurysm or dissection. 2. Prior median sternotomy and CABG. No pericardial effusion. 3. No thoracic adenopathy. 4. No acute pulmonary parenchymal process. 5. Gallbladder wall calcifications (AKA porcelain gallbladder). No pericholecystic inflammatory changes identified by CT. Electronically authenticated by: GAVIN NAJERA Date: 2021-03-20 20:[address] [facility] LACTATE/LACTIC ACIDon 2020 Lactate [Moles/Vol] 0.8 mmol/L Normal 0.7-2.0 [facility] Comment on above: Performed By: #### L ACT #### [facility] [place] [facility] [address] [place], [place] [id number] Luis Amada PH VENOUS BLOODon 03-20-2021 PCO2 VENOUS 50.2 mmHg Normal 40.0-52.[address] [facility] Comment on above: Performed By: #### P HVEN #### [facility] [place] [facility] [address] [place], [place] [id number] Luis Amada pH VENOUS 7.38 Normal 7.33-7.[address] [facility] Comment on above: Performed By: #### P HVEN #### [facility] [place] [facility] [address] [place] [address] Luis Ybarra PROF 14(COMP METB)on 021 Albumin [Mass/Vol] 3.6 g/dL Normal 3.5-5.0 [facility] Comment on above: Performed By: #### B COMMERCIAL CREDIT HEAD, CMP, HSTROPN #### [facility] [place] [facility] [address] [place] [address] Luis Amada Albumin/Globulin [Mass ratio] 1.1 {ratio} Normal [facility] Comment on above: Performed By: #### B COMMERCIAL CREDIT HEAD, CMP, HSTROPN #### [facility] [place] [facility] [address] [place] [address] Luis Amada ALP [Catalytic activity/Vol] 141 U/L Critically high 38-[address] [facility] Comment on above: Performed By: #### B COMMERCIAL CREDIT HEAD, CMP, HSTROPN #### [facility] [place] [facility] [address] [place] [address] Luis Amada ALT [Catalytic activity/Vol] 24 U/L Normal 21-[address] [facility] Comment on above: Performed By: #### B COMMERCIAL CREDIT HEAD, CMP, HSTROPN #### [facility] [place] [facility] [address] [place] [id number] Luis Amada Anion gap [Moles/Vol] 11.7 mmol/L Normal [facility] Comment on above: Performed By: #### B COMMERCIAL CREDIT HEAD, CMP, HSTROPN #### [facility] [place] [facility] [address] [place] [address] Luis Amada AST [Catalytic activity/Vol] 21 U/L Normal 17-[address] [facility] Comment on above: Performed By: #### B COMMERCIAL CREDIT HEAD, CMP, HSTROPN #### [facility] [place] [facility] [address] [place] [address] Luis Amada Bilirubin [Mass/Vol] 1.0 mg/dL Normal 0.2-1.3 [facility] [place] [facility] Comment on above: Performed By: #### B COMMERCIAL CREDIT HEAD, CMP, HSTROPN #### [facility] [place] [facility] [address] [place] [address] Luis Amada Calcium [Mass/Vol] 8.8 mg/dL Normal 8.4-10.2 [facility] Comment on above: Performed By: #### B COMMERCIAL CREDIT HEAD, CMP, HSTROPN #### [facility] [place] [facility] [address] [place] [address] Luis Amada Chloride [Moles/Vol] 97 mmol/L Critically low 98-107 [facility] [place] [facility] Comment on above: Performed By: #### B COMMERCIAL CREDIT HEAD, CMP, HSTROPN #### [facility] [place] [facility] [address] [place] [address] Luis Amada CO2 [Moles/Vol] 30.1 mmol/L Critically high 22.0-30.[address] [facility] Comment on above: Performed By: #### B COMMERCIAL CREDIT HEAD, CMP, HSTROPN #### [facility] [place] [facility] [address] [place] [address] Luis Amada Creatinine [Mass/Vol] 1.41 mg/dL Critically high 0.66-1.[address] [facility] Comment on above: Performed By: #### B COMMERCIAL CREDIT HEAD, CMP, HSTROPN #### [facility] [place] [facility] [address] [place] [address] Luis Amada EGFR-AF VINCENTIAN 59 mL/min/1.73m2 Critically low >=60 [facility] [place] [facility] Comment on above: Performed By: #### B COMMERCIAL CREDIT HEAD, CMP, HSTROPN #### [facility] [place] [facility] [address] [place] [address] Luis Amada EGFR-NON AF VINCENTIAN 48 mL/min/1.73m2 Critically low >=[address] [facility] Comment on above: Performed By: #### B COMMERCIAL CREDIT HEAD, CMP, HSTROPN #### [facility] [place] [facility] [address] [place] [id number] Luis Amada Globulin (S) [Mass/Vol] 3.3 g/dL Normal [facility] Comment on above: Performed By: #### B COMMERCIAL CREDIT HEAD, CMP, HSTROPN #### [facility] [place] [facility] [address] [place] [address] Luis Amada Glucose [Mass/Vol] 107 mg/dL Critically high 74-106 T [facility] Comment on above: Performed By: #### B COMMERCIAL CREDIT HEAD, CMP, HSTROPN #### [facility] [place] [facility] [address] [place] [address] Luis Amada Potassium [Moles/Vol] 3.8 mmol/L Normal 3.4-5.[address] [facility] Comment on above: Performed By: #### B COMMERCIAL CREDIT HEAD, CMP, HSTROPN #### [facility] [place] [facility] [address] [place] [address] Luis Amada Protein [Mass/Vol] 6.9 g/dL Normal 6.1-8.2 [facility] Comment on above: Performed By: #### B COMMERCIAL CREDIT HEAD, CMP, HSTROPN #### [facility] [place] [facility] [address] [place] [id number] Luis Amada Sodium [Moles/Vol] 135 mmol/L Critically low 137-145 Th [facility] Comment on above: Performed By: #### B COMMERCIAL CREDIT HEAD, CMP, HSTROPN #### [facility] [place] [facility] [address] [place] [id number] Luis Amada Urea nitrogen [Mass/Vol] 20.0 mg/dL Normal 9.0-20.[address] [facility] Comment on above: Performed By: #### B COMMERCIAL CREDIT HEAD, CMP, HSTROPN #### [facility] [place] [facility] [address] [place] [id number] Luis Amada Urea nitrogen/Creatinine [Mass ratio] 14.2 mg/mg Normal [facility] Comment on above: Performed By: #### B COMMERCIAL CREDIT HEAD, CMP, HSTROPN #### [facility] [place] [facility] [address] [place], [place] [address] Lusi Ybarra TROPONIN, HIGH SENSITIVITYon 03-20-2021 HSTROP 8.7 pg/mL Normal 4.0-42.[address] [facility] Comment on above: Result Comment: CUT- OFF POINTS HAVE BEEN ESTABLISHED BASED ON THE FOURTH UNIVERSAL DEFINITIONS OF MYOCARDIAL INFARCTION. THE UPPER REFERENCE LIMIT (URL) OF TROPONIN, DEFINED THE 99TH PERCENTILE OF cTnI DISTRIBUTION IN A REFERENCE POPULATION, HAS BEEN CONFIRMED THE DECISION THRESHOLD FOR ME DIAGNOSIS. Performed By: #### B COMMERCIAL CREDIT HEAD, CMP, HSTROPN #### [facility] [place] [facility] [address] [place] [id number] Luis Ybarra XR CHEST 1 Von 03-20-2021 XR CHEST 1 V ONE-VIEW CHEST RADIOGRAPH, 03/20/2021 5:20 PM EDT COMPARISON: None CLINICAL HISTORY: SHORTNESS OF BREATH today FINDINGS: No acute cardiopulmonary disease. No pulmonary edema, pneumothorax, or pleural effusion. Prior open heart surgery. Normal heart size. No acute osseous abnormality. IMPRESSION: No acute abnormality identified. Electronically authenticated by: Gwendolyn JACKSON Date: 2021-03-20 18:[address] [facility] Consultation Noteon 02-26-20 Consultation Note [id number] 0CD:127 Normal [facility] CNOVon 02-10-2021 CNOV Office Visit (RADTSA ) JOSSELYN FOX ([id number]) 1940 M Date Time Provider Department 02/10/21 10:45 AM Heath DENNEY During your visit today, we recorded the following information about you: Temperature Pulse Respiration Blood pressure 97.6 degrees 65/minute 20/minute 121/55 Weight 106.6 kg Adelaide Ellison RN 02/10/2021 10:45 AM Signed AUA 12 EDNA Garduno MD 02/13/2021 2:45 PM Signed Radiation Oncology - Follow Up Note PATIENT NAME: Josselyn Fox PATIENT DIAGNOSIS: Prostate adenocarcinoma, initial PSA 6.76, biopsy [place] score 3 + 4 = 7 (grade group 2), clinical stage T1c, N0, M0, stage IIB [T1-T2, N0, M0, PSA <20, GG 2] (AJCC 8th ed.), s/p TRUS Random biopsy. Prostate cancer (C61), 2018 NCCN Risk Group: Favorable Intermediate Risk Group RADIATION SUMMARY: Prostate brachytherapy seed implant, 06/14/18, 145 Gy using I-125 sources, 72 seeds 20 needles 27.94 mCi INTERVAL HISTORY: The patient presents for routine follow-up. Doing well without reported new problems. PSA HISTORY: PSA. (no units) Date Value 02/03/2021 0.06 08/06/2019 0.36 01/15/2019 0.410 07/21/2018 2.53 ALLERGIES Allergen Reactions - Lisinopril Other: See Comments cough - Clonidine Rash Clonidine patch BABY ASPIRIN ORAL Take 2 tablets by mouth daily at bedtime. NOVOLOG MIX 70-30 U-100 INSULN 100 unit/mL (70-30) injection 33 Units beofre breakfast, 37 units before supper Irbesartan-Hydrochloro thiazide 300-12.5 mg per tablet 0.5 tablets once daily. amLODIPine (NORVASC) 5 mg tablet once daily. carvedilol (COREG) 25 mg tablet twice daily. metFORMIN (GLUCOPHAGE) 500 mg tablet twice daily. furosemide (LASIX) 20 mg tablet once daily. simvastatin (ZOCOR) 40 mg tablet once daily. aspirin-calcium carbonate 81 mg-300 mg calcium(777 mg) tab Take 162 mg by mouth once daily. ferrous sulfate 325 mg (65 mg iron) tablet Take 325 mg by mouth once daily. desonide (TRIDESILON) 0.05 % cream Apply to affected area twice daily. REVIEW OF SYSTEMS: D/N = 4/ Hematuria: none Dysuria: none Incontinence: none Urgency: mild Catheter use: No Medications to aid urination: no - Total AUA Score: 12 Bowel movement frequency: 1/day Bowel movement quality: normal Blood per rectum: none PHYSICAL EXAM: BP 121/55 Pulse 65 Temp 36.4 ?C (97.6 ?F) Resp 20 Wt 106.6 kg (235 lb) SpO2 94% BMI 30.58 kg/m? KPS: 100 General appearance: Alert and oriented. No acute distress. Abdomen: Normal abdominal exam, Abdomen soft, non-tender. No masses, organomegaly. Rectal exam def Extremities: No deformities, edema, skin discoloration, clubbing or cyanosis. Lymph Nodes: No cervical lymphadenopathy, No supraclavicular lymphadenopathy, No axillary lymphadenopathy. and No inguinal lymphadenopathy.. Skin: Skin color, texture, turgor normal, no suspicious rashes or lesions. ASSESSMENT/PLAN: Prostate adenocarcinoma, initial PSA 6.76, biopsy [place] score 3 + 4 = 7 (grade group 2), clinical stage T1c, N0, M0, stage IIB [T1-T2, N0, M0, PSA <20, GG 2] (AJCC 8th ed.), s/p TRUS Random biopsy. Prostate cancer (C61), 2018 NCCN Risk Group: Favorable Intermediate Risk Group, status prostate brachytherapy implant 06/14/18 Patient is doing well with stable low PSA. No post radiation problems. He continues close follow-up with Dr. Peterson. Recommend repeat PSA in one year. Signed by: Heath Denney MD cc: MD Dr. Clive Varma II Referring Provider: Heath DENNEY [[id number]] Allergies As of Date: 02/10/2021 Noted Allergy Reaction LISINOPRIL 03/17/2013 14 - Other: See Comments Comments: cough CLONIDINE 03/17/2013 2 - Rash Comments: Clonidine patch Date Reviewed: 02/10/2021 Reviewed by: Heath Denney MD - Fully Assessed Reason for Visit: Prostate Cancer [590] Primary Visit Diagnosis:Prostate CA (HCC) [C61] Order(s):PSA (OUTSIDE) [2694234] Order #: [id number] PSA/PROSTSPECAG DIAG [SQPSA] Order #: [id number] FUTURE Prescriptions as of 02/10/2021 Sig: BABY ASPIRIN ORAL Take 2 tablets by mouth daily* NOVOLOG MIX 70-30 U-100 INSUL* 33 Units beofre breakfast, 37* IRBESARTAN 300 MG-HYDROCHLORO* 0.5 tablets once daily. AMLODIPINE 5 MG TABLET once daily. CARVEDILOL 25 MG TABLET twice daily. METFORMIN 500 MG TABLET twice daily. FUROSEMIDE 20 MG TABLET once daily. SIMVASTATIN 40 MG TABLET once daily. FERROUS SULFATE 325 MG (65 MG* Take 325 mg by mouth once anne* DESONIDE 0.05 % TOPICAL CREAM Apply to affected area twice * Problem List As Of Date 02/10/2021 Noted Resolved Prostate cancer (HCC) [C61] 04/18/2018 Visit Notes: >> Adelaide Ellison RN TueFeb 10, 2021 10:40 AM Status: Signed AUA 12 Adelaide Ellison RN Medications Discontinued During This Encounter Prescriptions - aspirin-calcium carbonate 81 mg-300 mg calcium(777 mg) tab (Discontinued (more content not included)... Normal [facility] PSA Total (Not a Screen)on 0 01-15-2019 PSA Total (Not a Screen) 0.410 ng/mL Normal 0.000-4.000 [facility] Comment on above: Result Comment: PERF ORMED BY: [place] [address] PATHOLOGIST [employer]ER HAYLEY VERONICA M.D. Performed By: #### P SATOTAL #### [address] Vital Signs Date Time Vital Sign Value Performing Clinician Juan R talavera 02-25-2025 15:39-0400 Body height 185.4 cm Howie Rosario MD Work Phone: [facility] 02-25-2025 15:39-0400 Body mass index (BMI) [Ratio] 31.8 kg/m2 Howie Rosario MD Work Phone: [facility] 02-25-2025 15:39-0400 Body weight 109.32 kg Howie Rosario MD Work Phone: [facility] 02-25-2025 15:39-0400 Diastolic blood pressure 60 mm[Hg] Howie Rosario MD Work Phone: [facility] 02-25-2025 15:39-0400 Heart rate 62 /min Howie Rosario MD Work Phone: [facility] 02-25-2025 15:39-0400 SaO2% (BldA) [Mass fraction] 95 % Howie Rosario MD Work Phone: [facility] 02-25-2025 15:39-0400 Systolic blood pressure 136 mm[Hg] Howie Rosario MD Work Phone: [facility] 02-19-2025 13:49-0400 Body height 185.4 cm Amisha Monzon DPM Work Phone: [facility] 02-19-2025 13:49-0400 Body mass index (BMI) [Ratio] 31.93 kg/m2 Amisha Monzon DPM Work Phone: [facility] 02-19-2025 13:49-0400 Body weight 109.77 kg Amisha Monzon DPM Work Phone: [facility] 10-16-2024 13:49-0500 Body height 185.4 cm Amisha Monzon DPM Work Phone: [facility] 10-16-2024 13:49-0500 Body mass index (BMI) [Ratio] 31.8 kg/m2 Amisha Monzon DPM Work Phone: [facility] 10-16-2024 13:49-0500 Body weight 109.32 kg Amisha Monzon DPM Work Phone: [facility] 08-20-2024 14:20-0500 Body height 182.9 cm Howie Rosario MD Work Phone: [facility] 08-20-2024 14:20-0500 Body mass index (BMI) [Ratio] 32.69 kg/m2 Howie Rosario MD Work Phone: [facility] 08-20-2024 14:20-0500 Body weight 109.32 kg Howie Rosario MD Work Phone: [facility] 08-20-2024 14:20-0500 Diastolic blood pressure 66 mm[Hg] Howie Rosario MD Work Phone: [facility] 08-20-2024 14:20-0500 Heart rate 61 /min Howie Rosario MD Work Phone: [facility] 08-20-2024 14:20-0500 SaO2% (BldA) [Mass fraction] 96 % Howie Rosario MD Work Phone: [facility] 08-20-2024 14:20-0500 Systolic blood pressure 130 mm[Hg] Howie Rosario MD Work Phone: [facility] 06-07-2024 14:58-0400 Body height 182.9 cm Amisha Cardozoe DPM Work Phone: [facility] 06-07-2024 14:58-0400 Body mass index (BMI) [Ratio] 32.69 kg/m2 Amisha Monzon DPM Work Phone: [facility] 06-07-2024 14:58-0400 Body weight 109.32 kg Amisha Monzon DPM Work Phone: [facility] 05-14-2024 13:49-0400 Body height 182.9 cm Howie Rosario MD Work Phone: [facility] 05-14-2024 13:49-0400 Body mass index (BMI) [Ratio] 32.69 kg/m2 Howie Rosario MD Work Phone: [facility] 05-14-2024 13:49-0400 Body weight 109.32 kg Howie Rosario MD Work Phone: [facility] 05-14-2024 13:49-0400 Diastolic blood pressure 78 mm[Hg] Howie Rosario MD Work Phone: [facility] 05-14-2024 13:49-0400 Heart rate 69 /min Howie Rosario MD Work Phone: [facility] 05-14-2024 13:49-0400 SaO2% (BldA) [Mass fraction] 95 % Howie Rosario MD Work Phone: [facility] 05-14-2024 13:49-0400 Systolic blood pressure 132 mm[Hg] Howie Rosario MD Work Phone: [facility] Encounters Encounter Date Encounter Type Care Provider Facility Start: 02-25-2025 End: 02-25-2025 Assay of hemosiderin, quant Howie Rosario MD Work Phone: [facility] Start: 02-25-2025 End: 02-25-2025 Patient encounter procedure Howie Rosario MD Work Phone: [facility] Comment on above: Routine general medi viv examination at health care facility (Primary Dx); ACP (advance care planning); Type 2 diabetes mellitus with diabetic polyneuropathy, with long-term current use of insulin (HCC); Chronic kidney disease, stage 3a ([facility]-HCC); Chronic diastolic heart failure ([facility]); Coronary artery disease involving [place] coronary artery of [place] heart without angina pectoris Start: 02-25-2025 End: 02-25-2025 ambulatory HOWIE ROSARIO Not Available Start: 02-25-2025 End: 02-25-2025 Bamboo flowsheet Howie Rosario MD Work Phone: [facility] Start: 02-25-2025 End: 02-25-2025 Bamboo flowsheet Howie Rosario MD Work Phone: [facility] Start: 02-19-2025 End: 02-19-2025 Bamboo flowsheet Amisha Monzon DPM Work Phone: [facility] Start: 02-19-2025 End: 02-19-2025 Bamboo flowsheet Amisha Monzon DPM Work Phone: [facility] Start: 02-19-2025 End: 02-19-2025 Patient encounter procedure Amisha Monzon DPM Work Phone: [facility] Comment on above: Onychomycosis (Prima ry Dx); Diabetes mellitus with peripheral angiopathy (HCC); Type II or unspecified type diabetes mellitus with neurological manifestations, not stated as uncontrolled(250.60) (HCC); Nail dystrophy Start: 02-19-2025 End: 02-19-2025 ambulatory AMISHA MONZON Not Available Start: 11-28-2024 End: 11-29-2024 Pre-admission assessment HOWIE ROSARIO [facility] Start: 11-19-2024 End: 11-19-2024 ambulatory HOWIE ROSARIO Not Available Start: 10-16-2024 End: 10-16-2024 ambulatory AMISHA Conn MONZON Not Available Start: 10-16-2024 End: 10-16-2024 Patient encounter procedure Amisha Conn Monzon DPM Work Phone: [facility] Comment on above: Onychomycosis (Prima ry Dx); Diabetes mellitus with peripheral angiopathy (CMS/HCC); Type II or unspecified type diabetes mellitus with neurological manifestations, not stated as uncontrolled(250.60) (CMS/HCC) Start: 10-03-2024 End: 10-03-2024 Patient encounter procedure Jana Hall MD Work Phone: [facility] Comment on above: Basal cell carcinoma of skin of forearm, right (Primary Dx) Start: 10-03-2024 End: 10-03-2024 ambulatory JANA HALL Not Available Start: 10-03-2024 End: 10-03-2024 Bamboo flowsheet Jana Hall MD Work Phone: [facility] Start: 10-03-2024 End: 10-03-2024 Bamboo flowsheet Jana Hall MD Work Phone: [facility] Start: 08-20-2024 End: 08-20-2024 Office outpatient visit 25 minutes Howie Rosario MD Work Phone: [facility] Comment on above: Type 2 diabetes aidan itus with diabetic polyneuropathy, with long-term current use of insulin (CMS/HCC) (Primary Dx); Chronic kidney disease, stage 3a (HCC) (CMS/HCC); Chronic diastolic heart failure (CMS/HCC) Start: 08-20-2024 End: 08-20-2024 ambulatory HOWIE ROSARIO Not Available Start: 08-20-2024 End: 08-20-2024 Bamboo flowsheet Howie Rosario MD Work Phone: [facility] Start: 08-20-2024 End: 08-20-2024 Bamboo flowsheet Howie Rosario MD Work Phone: [facility] Start: 07-05-2024 End: 07-05-2024 Bamboo flowsheet Jana Hall MD Work Phone: [facility] Start: 07-05-2024 End: 07-05-2024 Bamboo flowssvetlana Hall MD Work Phone: [facility] Start: 07-05-2024 End: 07-05-2024 ambulatory JANA HALL Not Available Start: 07-05-2024 End: 07-05-2024 Office outpatient visit 15 minutes Jana Hall MD Work Phone: [facility] Comment on above: Seborrheic keratosis (Primary Dx); Seborrheic keratosis, inflamed; Actinic keratosis; Neoplasm of unspecified behavior of bone, soft tissue, and skin; Lentigines Start: 06-07-2024 End: 06-07-2024 Patient encounter procedure Amisha Monzon DPM Work Phone: [facility] Comment on above: Type II or unspecifi ed type diabetes mellitus with neurological manifestations, not stated as uncontrolled(250.60) ([facility]) (Primary Dx); Diabetes mellitus with peripheral angiopathy ([facility]); Onychomycosis; Nail dystrophy Start: 06-07-2024 End: 06-07-2024 ambulatory AMISHA MONZON Not Available Start: 06-07-2024 End: 06-07-2024 Bamboo flowsheet Amisha Monzon DPM Work Phone: [facility] Start: 06-07-2024 End: 06-07-2024 Bamboo flowsheet Amisha Monzon DPM Work Phone: [facility] Start: 05-14-2024 End: 05-14-2024 Bamboo flowsheet Howie Rosario MD Work Phone: [facility] Start: 05-14-2024 End: 05-14-2024 Bamboo flowsheet Howie Rosario MD Work Phone: [facility] Start: 05-14-2024 End: 05-14-2024 Office outpatient visit 25 minutes Howie Rosario MD Work Phone: [facility] Comment on above: Type 2 diabetes aidan itus with peripheral vascular disease ([facility]) Start: 05-14-2024 End: 05-14-2024 ambulatory HOWIE ROSARIO Not Available Start: 03-14-2024 End: 03-14-2024 ambulatory HOWIE ROSARIO Not Available Start: 08-19-2021 End: 08-20-2021 ambulatory HOWIE ROSARIO [facility] Start: 03-31-2021 End: 04-01-[address] HOWIE ROSARIO Facility:[facility] Start: 03-20-2021 End: 03-20-[address] CATRACHITA JUAREZ Facility:[facility] Start: 02-03-2021 End: 02-04-[address] HOWIE ROSARIO Facility:[facility] Start: 10-22-2020 End: 10-23-[address] HOWIE ROSARIO Facility:[facility] Start: 09-29-2020 End: 09-30-[address] HOWIE ROSARIO Facility:[facility] Start: 05-26-2017 End: 05-27-2017 Ambulatory DEFAULT PHYSICIAN Facility:[facility] Procedures Date Procedure Procedure Detail Performing Clinician Start: 02-25-2025 Hemoglobin glycosyla len a1c Howie Rosario MD Work Phone: Start: 10-03-2024 DESTRUCTION OF LESION Mitzy Hall MD Work Phone: Start: 08-20-2024 Hemoglobin glycosyla len a1c Howie Rosario MD Work Phone: Start: 07-05-2024 SKIN / NAIL BIOPSY Forrest Hall MD Work Phone: Start: 07-05-2024 End: 07-05-2024 CRYOTHERAPY SKIN LESION Jana Hall MD Work Phone: Start: 05-14-2024 Hemoglobin glycosyla len a1c Howie Rosario MD Work Phone: Start: 01-13-2023 H/O: artificial joint History of artificial joint Howie Rosario MD Work Phone: Start: 02-03-[address] CATRACHITA LLAMAS Comment on above: Performed By: #### P SAD #### [facility] [address] [place] [id number] Luis Ybarra Start: 06-14-2018 Implantation of radioactive seed into prostate HOWIE KEVIN Start: 03-23-2018 Ultrasonography guid ed transrectal cryoablation of prostate HOWIE KEVIN Arthroplasty of knee HOWIE ROSARIO Back structure, excl uding neck (body structure) HOWIE KEVIN cataract HOWIE KEVIN Colonoscopy HOWIE KEVIN Tonsillectomy HOWIE KEVIN Plan of Treatment Date Care Activity Detail Author Start: 10-18-2025 Glaucoma screening Diabetes: Retinopathy Screening [facility] Start: 07-16-2025 End: 07-16-2025 Patient encounter procedure 07/16/2025 1:20 PM EST Office Visit [facility] [address] [place] [address] Jana Hall MD [address] [place] [address] [facility] Start: 06-25-2025 End: 06-25-2025 Patient encounter procedure 06/25/2025 2:00 PM EDT Procedure Visit [facility] [address] [place] [phone] Amisha Monzon, DPM [address] [place] [address] [facility] Start: 05-28-2025 Hemoglobin A1c measurement Diabetes: Hemoglobin A1C [facility] Start: 05-27-2025 End: 05-27-2025 Patient encounter procedure 05/27/2025 1:45 PM EDT Office Visit [facility] [address] [place] [address] Howie Rosario MD [address] [place] [address] [facility] Start: 05-06-2025 Influenza vaccination Influenza Vaccine (Season Ended) [facility] Start: 02-25-2025 End: 02-25-2025 Patient encounter procedure [facility] Comment on above: Arrived Start: 02-19-2025 Hemoglobin A1c measurement Diabetes: Hemoglobin A1C [facility] Start: 02-19-2025 End: 02-19-2025 Patient encounter procedure [facility] Comment on above: Arrived Start: 12-05-2024 Urine screening for protein Diabetes: Urine Protein Screening [facility] Start: 11-19-2024 End: 11-19-2024 Patient encounter procedure 11/19/2024 2:30 PM EDT Office Visit [facility] [address] [facility] [address] [place] [address] Howie Rosario MD [address] [facility] [address] [place] [address] [facility] Start: 11-18-2024 Hemoglobin A1c measurement Diabetes: Hemoglobin A1C [facility] Start: 10-16-2024 End: 10-16-2024 Patient encounter procedure 10/16/2024 1:45 PM EST Procedure Visit [facility] [address] [place] [phone] Amisha Monzon DPM [address] [place] [address] [facility] Start: 10-03-2024 End: 10-03-2024 Patient encounter procedure [facility] Comment on above: Arrived Start: 08-20-2024 End: 08-20-2024 Patient encounter procedure 08/20/2024 2:30 PM EST Office Visit [facility] [address] [place] [address] Howie Rosario MD [address] [place] [address] Arrived [facility] Comment on above: Arrived Start: 08-13-2024 Hemoglobin A1c measurement Diabetes: Hemoglobin A1C [facility] Start: 08-13-2024 End: 08-13-2024 Patient encounter procedure 08/13/2024 2:00 PM EST Office Visit [facility] [address] [place] [address] Howie Rosario MD [address] [place] [address] [facility] Start: 07-05-2024 End: 07-05-2024 Patient encounter procedure 07/05/2024 1:20 PM EDT Office Visit [facility] [address] [place] [address] Jana Hall MD [address] [place] [address] [facility] Start: 06-14-2024 Hemoglobin A1c measurement Diabetes: Hemoglobin A1C [facility] Start: 06-07-2024 End: 06-07-2024 Patient encounter procedure [facility] Comment on above: Arrived Start: 05-14-2024 End: 05-14-2024 Patient encounter procedure 05/14/2024 2:00 PM EDT Office Visit [facility] [address] [place] [address] Howie Rosario MD [address] [place] [address] Arrived [facility] Comment on above: Arrived Start: 05-06-2024 Influenza vaccination Influenza Vaccine (#1) [facility] Start: 08-21-2019 Urine screening for protein Diabetes: Urine Protein Screening [facility] Dermatopathology exam Dermatopat hology exam Pathology and Cytology Timed Neoplasm of unspecified behavior of bone, soft tissue, and skin Release Upon Ordering for 1 Occurrences starting 07/05/2024 [facility] Work Phone: Comment on above: Release Upon Ordering for 1 Occurrences starting 07/05/2024 Immunizations Immunization Date Immunization Notes Care Provider Fa cili 06-14-2023 Influenza, High-dose Seasonal, Quadrivalent, Preservative Free Howie Rosario MD Work Phone: [facility] 06-14-2023 influenza virus vacc ine, unspecified formulation Howie Rosario MD Work Phone: [facility] 09-03-2022 SARS-COV-2 (COVID-19 ) vaccine, mRNA, spike protein, LNP, bivalent, preservative free, 30 mcg/0.3 mL dose, anuradha-sucrose formulation Howie Rosario MD Work Phone: [facility] 05-24-2022 Influenza, High-dose Seasonal, Quadrivalent, Preservative Free Howie Rosario MD Work Phone: [facility] 06-23-2021 influenza, high dose seasonal, preservative-free Howie Rosario MD Work Phone: [facility] 05-22-2021 Influenza, High-dose Seasonal, Quadrivalent, Preservative Free Howie Rosario MD Work Phone: [facility] 06-09-2020 influenza, high dose seasonal, preservative-free Howie Rosario MD Work Phone: [facility] 06-09-2020 Influenza, High-dose Seasonal, Quadrivalent, Preservative Free Howie Rosario MD Work Phone: [facility] 06-26-2019 Influenza, injectabl e, Madin Nai Canine Kidney, quadrivalent with preservative Howie Rosario MD Work Phone: [facility] 06-26-2019 influenza, injectabl e, madin nai canine kidney, preservative free Howie Rosario MD Work Phone: [facility] 05-30-2018 influenza, high dose seasonal, preservative-free Howie Rosario MD Work Phone: [facility] 05-30-2018 Influenza, High-dose Seasonal, Quadrivalent, Preservative Free Howie Rosario MD Work Phone: [facility] 05-30-2018 zoster vaccine recombinant Axel Rosario MD Work Phone: [facility] 03-14-2018 zoster vaccine recombinant Axel Rosario MD Work Phone: [facility] 06-02-2017 influenza, high dose seasonal, preservative-free Howie Rosario MD Work Phone: [facility] 06-02-2017 Influenza, High-dose Seasonal, Quadrivalent, Preservative Free Howie Rosario MD Work Phone: [facility] 03-21-2017 pneumococcal conjuga te vaccine, 13 valzeeshan Rosario MD Work Phone: [facility] 03-21-2017 zoster vaccine, live Howie Rosario MD Work Phone: [facility] 10-06-2016 influenza, injectabl e, quadrivalent, preservative free Howie Rosario MD Work Phone: [facility] 10-06-2016 pneumococcal conjuga te vaccine, 13 susan Rosario MD Work Phone: [facility] 06-03-2016 influenza, injectabl e, quadrivalent, contains preservative Howie Rosario MD Work Phone: [facility] 06-03-2016 influenza, injectabl e, quadrivalent, preservative free Howie Rosario MD Work Phone: [facility] 06-02-2015 pneumococcal conjuga te vaccine, 13 valzeeshan Rosraio MD Work Phone: [facility] 05-15-2015 seasonal influenza, intradermal, preservative free Howie Rosario MD Work Phone: [facility] 06-13-2014 zoster vaccine, live Howie Rosario MD Work Phone: [facility] 06-10-2014 influenza, seasonal, injectable Howie Rosario MD Work Phone: [facility] 07-16-2013 seasonal influenza, intradermal, preservative free Howie Rosario MD Work Phone: [facility] 03-17-2013 pneumococcal polysaccharide vaccine, 23 valzeeshan Rosario MD Work Phone: [facility] 06-21-2012 influenza virus vacc ine, whole virus Howie Rosario MD Work Phone: [facility] 09-05-2004 pneumococcal polysaccharide vaccine, 23 valzeeshan Rosario MD Work Phone: [facility] Payers Date Payer Category Payer Private Health Insurance [employer] Member Subscriber Plan / Payer (Effective 2021-Present) Name: Josselyn Fox Relation to Subscriber: Self Name: Josselyn Fox Payer ID: Not on file Type: Not on file Address: [place] [id number] 2020 Unknown 2005 Medicare [id number] 1959 Medicare [id number] 1959 Self-pay 1959 Unknown [id number] 1959 Unknown [id number] 1940 Unknown [id number] [id number]. 593 1940 Unknown [id number] 2.16.840.1.962753.3.579.2. 593 1940 Unknown [id number] 2.16.840.1.477140.3.579.2. 593 1940 Unknown [id number] 2.16.840.1.839261.3.579.2. 1259 1940 Unknown [id number] 2.16.840.1.783642.3.579.2. 1258 1940 Unknown [id number] 2.16.840.1.061677.3.579.2. 1258 1940 Unknown [id number] 2.16.840.1.216939.3.579.2. 1258 1940 Unknown [id number] 2.16.840.1.858730.3.579.2. 1258 1940 Unknown [id number] 2.16.840.1.839241.3.579.2. 1258 1940 Unknown [id number] 2.16.840.1.623654.3.579.2. 1258 1940 Unknown [id number] 2.16.840.1.293977.3.579.2. 1258 1940 Unknown [id number] 2.16.840.1.608755.3.579.2. 1258 1940 Unknown [id number] 2.16.840.1.142096.3.579.2. 1259 Unknown [id number] 2.16.840.1.972250.3.579.2. 593 Unknown [id number] [id number]. 593 Social History Date Type Detail Facility Start: 01-07-2023 End: 06-07-2024 Tobacco smoking status [facility] Ex-smoker [facility] Start: 09-05-1954 End: 09-05-1989 History of tobacco use Current smoker [facility] Start: 09-05-1954 End: 09-05-1989 History of tobacco use Cigarette Smoker [facility] Start: 01-07-2023 End: 06-07-2024 Tobacco use and exposure Former smokeless tobacco user [facility] Start: 05-14-2024 End: 02-25-2025 Alcoholic beverage intake Lifetime non-drinker (finding) [facility] Start: 11-02-2023 End: 02-25-2025 History of Social function [facility] Start: 11-02-2023 End: 02-25-2025 Humiliation, Afraid, Rape, and Kick questionnaire [HARK] [facility] Within the last year , have you been afraid of your partner or ex-partner? No [facility] How hard is it for y ou to pay for the very basics like food, housing, medical care, and heating Not hard at all [facility] Do you feel stress - tense, restless, nervous, or anxious, or unable to sleep at night because your mind is troubled all the time - these days [OSQ] Not at all [facility] (I/We) worried wheth er (my/our) food would run out before (I/we) got money to buy more. Never true [facility] Start: 01-07-2023 Tobacco Comment Stopped smokin g for >20 years [facility] Start: 1940 Sex assigned at Not on file [facility] Sexual Orientation [facility] Start: 01-24-2012 Sex Male (finding) [facility] Medical Equipment Procedure Code Equipment Code Equipment Origin al Text Equipment Identifier Dates [id number], [id number] Start: 09-03-2009 Functional Status Date Assessment Result Facility 02-25-2025 Patient Health Quest ionnaire 2 item (PHQ-2) [Reported] [facility] Clinical Notes 02-10-2021 to 02-25-2025 Howie Rosario MD - 02/25/2025 3:45 PM Rupesh Monzon DPM - 02/19/2025 1:45 PM Rupesh Monzon DPM - 10/16/2024 1:45 PM Shai Hall MD - 10/03/2024 3:30 PM EST Note Date & Type Note Facility 02-25-2025 History of Present illness Narrative Images from the original note were not included. HPI Medicare Annual Wellness Visit Subsequent Additional comments: Pt states he occ has CP - left side lasts a few seconds started 2-3 weeks ago Last edited by Vivian Lamar LPN on 02/25/2025 3:49 PM. Subjective : Chief Complaint: Josselyn Fox is an 84 y.o. male here for an annual wellness visit. I have reviewed and reconciled the history and medication list with the patient today. Current Outpatient Medications Medication Sig Dispense Refill amLODIPine (Norvasc) 5 MG tablet TAKE 1 TABLET DAILY 100 tablet 3 aspirin EC 81 MG EC tablet Take 81 mg by mouth in the morning. carvedilol (Coreg) 25 MG tablet TAKE 1 TABLET EVERY MORNING AND 1 TABLET EVERY EVENING WITH MEALS 200 tablet 3 desonide (DesOwen) 0.05 % cream APPLY TOPICALLY TWO TIMES ADAY 60 g 3 Embecta Insulin Syr Ultrafine 31G X 5/16 0.5 ML misc USE DIRECTED INJECT TWO TIMES A DAY 180 each 3 ferrous sulfate 325 (65 Fe) MG tablet Take 325 mg by mouth in the morning. Take with meals. insulin aspart protamine-insulin aspart (NovoLOG MIX 70/30) (70-30) 100 UNIT/ML injection Inject 100 Units under the skin in the morning and 100 Units in the evening. Inject with meals. 180 mL 3 insulin syringe-needle U-100 (BD Insulin Syringe U/F) 31G X 5/16 0.3 mL misc every 12 (twelve) hours. ipratropium (Atrovent) 0.06 % nasal spray Administer 2 sprays into each nostril in the morning and 2 sprays at noon and 2 sprays in the evening and 2 sprays before bedtime. 15 mL 11 Lancets Ultra Thin 30G misc 2 (two) times a day. losartan-hydroCHLOROthiazide (Hyzaar) 100-25 MG tablet TAKE 1 TABLET DAILY 90 tablet 3 metFORMIN (Glucophage) 500 MG tablet TAKE 1 TABLET IN THE MORNING AND 1 TABLET IN THE EVENING WITH MEALS 180 tablet 3 Multiple Vitamins-Minerals (PreserVision AREDS) capsule every 12 (twelve) hours. simvastatin (Zocor) 40 MG tablet TAKE 1 TABLET AT BEDTIME 90 tablet 3 furosemide (Lasix) 20 MG tablet Take 1 tablet (20 mg) by mouth Daily as needed (Swelling) 100 tablet 1 nitroglycerin (Nitrostat) 0.[address] 1 tablet (0.4 mg) under the tongue every 5 (five) minutes if needed for chest pain May repeat every 5 minutes for up to 3 doses. 100 tablet 11 No current facility-administered medications for this visit. Review of Systems List of current healthcare providers: Patient Care Team: Howie Rosario MD as PCP - General (Internal Medicine) Howie Rosario MD as PCP - ACO Linwood Holder LPN Medicare Annual Visit Over the past 2 weeks, how often have you been bothered by any of the following problems? Little interest or pleasure in doing things: Not at all Feeling down, depressed, or hopeless: Not at all Patient Health Questionnaire-2 Score: 0 Flores Fall Risk History of Falling, Immediate or Within 3 Months: No Secondary Diagnosis: No Ambulatory Aid: Crutches/cane/walker Health Risk Assessment Form Do you need help eating, bathing, using the toilet, dressing, or getting around your home?: No Can you prepare your own meals?: Yes Can you do your own housework without help?: Yes Can you shop for groceries or clothes without help?: No Do you exercise for about 20 minutes 3 or more days a week?: No How confident are you that you can control and manage most of your health problems?: Somewhat confident Can you mange your money, credit cards and accounts, pay bills and taxes?: Yes Cognitive Screening Three Word Registration: Apple, Watch, Rebecca Clock Drawing: Normal Clock - 2 Three Word Recall: 2/3 words correct - 2 Total Score (0-5 Points): 4 Pain Assessment Pain Score: 2 Advance Care Planning Do you have a living will?: Yes Do you have a medical power of real estate associate attorney?: Yes Who is your medical power of real estate associate attorney?: daughter- harsha Objective : BP 136/60 Pulse 62 Ht 6' 1 Wt 241 lb SpO2 95% BMI 31.80 kg/m No results found. Physical Exam Constitutional: General: He is not in acute distress. Appearance: He is normal weight. He is not ill-appearing. HENT: Head: Normocephalic and atraumatic. Mouth/Throat: Pharynx: No oropharyngeal exudate or posterior oropharyngeal erythema. Cardiovascular: Rate and Rhythm: Normal rate and regular rhythm. Pulses: Dorsalis pedis pulses are 0 on the right side and 0 on the left side. Posterior tibial pulses are 0 on the right side and 0 on the left side. Heart sounds: Normal heart sounds. No murmur heard. Pulmonary: Effort: Pulmonary effort is normal. No respiratory distress. Breath sounds: Normal breath sounds. No wheezing. Abdominal: General: Bowel sounds are normal. There is no distension. Palpations: Abdomen is soft. Tenderness: There is no abdominal tenderness. There is no guarding. Musculoskeletal: General: No swelling. Right lower leg: Edema present. Left lower leg: Edema present. Neurological: General: No focal deficit present. Mental Status: He is alert and oriented to person, place, and time. Gait: Gait abnormal. Psychiatric: Mood and Affect: Mood normal. Thought Content: Thought content normal. Judgment: Judgment normal. Office Visit on 02/25/2025 Component Date Value Ref Range Status Hemoglobin A1C 02/25/2025 8.0 Final Assessment/Plan : The following health maintenance schedule was reviewed with the patient and provided in printed form in the after visit summary: Health Maintenance Topic Date Due Diabetes: Urine Protein Screening 08/21/2019 Influenza Vaccine (Season Ended) 2025 Diabetes: Hemoglobin A1C 05/28/2025 Diabetes: Retinopathy Screening 10/18/2025 Pneumococcal Vaccine: 65+ Years Completed Advance Care Planning Patient agreed to discuss advance care planning at today's wellness visit. We discussed that an advance directive is a legal document that only goes into effect if the patient is incapacitated and unable to speak for himself or herself. This would help healthcare providers to ensure that the patient gets the care that he or she wishes to receive. The goal is to provide a patient with the best possible quality of life. Encouraged patient to obtain a living will and durable power of real estate associate attorney for healthcare. We discussed telling goldsmith people about their advance directives such as close family members, and requested a copy to scan into the patient's EHR. An advance directive packet was offered to the patient. Assessment/Plan Diagnoses and all orders for this visit: Routine general medical examination at health care facility ACP (advance care planning) Type 2 diabetes mellitus with diabetic polyneuropathy, with long-term current use of insulin (HCC) - POCT Glycated hemoglobin, total - Improving control. RTC 3 months. Chronic kidney disease, stage 3a (CMS-HCC) Chronic diastolic heart failure (HCC) - furosemide (Lasix) 20 MG tablet; Take 1 tablet (20 mg) by mouth Daily as needed (Swelling) Coronary artery disease involving [place] coronary artery of [place] heart without angina pectoris - nitroglycerin (Nitrostat) 0.4 MG SL tablet; Place 1 tablet (0.4 mg) under the tongue every 5 (five) minutes if needed for chest pain May repeat every 5 minutes for up to 3 doses. Follow up in about 3 months (around 05/28/2025) for DM- A1C. Orders Placed This Encounter Procedures POCT Glycated hemoglobin, total Electronically signed by Howie Rosario MD on February 25, 2025 documented in this encounter [facility] 02-19-2025 History of Present illness Narrative Images from the original note were not included. Subjective Patient ID: Josselyn Fox is a 84 y.o. male who presents for DM Foot Care (Josselyn Fox is a 84 y.o. male who presents today with his daughter. BS: 180 A1C: 7.9 /Lv Dr. Rosario 11/19/2024/SS: 11). HPI Patient presents with his daughter complaining of elongated, thick, fungal nails. He is requesting nail debridement today. Review of Systems Medications Current Outpatient Medications: amLODIPine (Norvasc) 5 MG tablet, TAKE 1 TABLET DAILY, Disp: 100 tablet, Rfl: 3 aspirin EC 81 MG EC tablet, Take 81 mg by mouth in the morning., Disp: , Rfl: carvedilol (Coreg) 25 MG tablet, TAKE 1 TABLET EVERY MORNING AND 1 TABLET EVERY EVENING WITH MEALS, Disp: 200 tablet, Rfl: 3 desonide (DesOwen) 0.05 % cream, APPLY TOPICALLY TWO TIMES ADAY, Disp: 60 g, Rfl: 3 Embecta Insulin Syr Ultrafine 31G X 5/16 0.5 ML misc, USE DIRECTED INJECT TWO TIMES A DAY, Disp: 180 each, Rfl: 3 ferrous sulfate 325 (65 Fe) MG tablet, Take 325 mg by mouth in the morning. Take with meals., Disp: , Rfl: furosemide (Lasix) 20 MG tablet, Take 1 tablet (20 mg) by mouth Daily as needed (Swelling)., Disp: 100 tablet, Rfl: 1 insulin aspart protamine-insulin aspart (NovoLOG MIX 70/30) (70-30) 100 UNIT/ML injection, Inject 100 Units under the skin in the morning and 100 Units in the evening. Inject with meals., Disp: 180 mL, Rfl: 3 insulin syringe-needle U-100 (BD Insulin Syringe U/F) 31G X 5/16 0.3 mL misc, every 12 (twelve) hours., Disp: , Rfl: ipratropium (Atrovent) 0.06 % nasal spray, Administer 2 sprays into each nostril in the morning and 2 sprays at noon and 2 sprays in the evening and 2 sprays before bedtime., Disp: 15 mL, Rfl: 11 Lancets Ultra Thin 30G misc, 2 (two) times a day., Disp: , Rfl: losartan-hydroCHLOROthiazide (Hyzaar) 100-25 MG tablet, TAKE 1 TABLET DAILY, Disp: 90 tablet, Rfl: 3 metFORMIN (Glucophage) 500 MG tablet, TAKE 1 TABLET IN THE MORNING AND 1 TABLET IN THE EVENING WITH MEALS, Disp: 180 tablet, Rfl: 3 Multiple Vitamins-Minerals (PreserVision AREDS) capsule, every 12 (twelve) hours., Disp: , Rfl: simvastatin (Zocor) 40 MG tablet, TAKE 1 TABLET AT BEDTIME, Disp: 90 tablet, Rfl: 3 Allergies Clonidine, Lisinopril, and Clonidine derivatives Past Surgical History Past Surgical History: Procedure Laterality Date CATARACT EXTRACTION Left 2013 CATARACT EXTRACTION Right 2010 CATARACT EXTRACTION W/ INTRAOCULAR LENS IMPLANT cataract extraction and lens implantation COLONOSCOPY COLONOSCOPY 04/2010 Colonoscopy with Polypectomy CORONARY ARTERY BYPASS GRAFT 2007 KNEE SURGERY 2012 Knee replacement LUMBAR DISC SURGERY 10/23/2013 Left L4-5 micro disc Surgery herniated disc Dr. Perez TONSILLECTOMY US PROSTATE WITH BIOPSY 03/23/2018 Prostate Ultrasound with Needle Biopsy Dr. Peterson Family History Family History Problem Relation Name Age of Onset Alzheimer's disease Mother Heart disease Mother Cancer Mother Cancer Father No Known Problems Sister 1 No Known Problems Brother 6 Diabetes Other spouse Hypertension Sibling Heart disease Sibling Stroke Sibling Cancer Sibling Diabetes Sibling No Known Problems Daughter 2 No Known Problems Son 2 Objective Physical Exam Cardiovascular: Comments: Pedal pulses: DP 1/4 R 0/4 L bilateral, PT 2/4 bilateral. Skin temp is warm to cool. Varicosities: absent Hair growth: absent Pulmonary: Effort: Pulmonary effort is normal. Musculoskeletal: General: No tenderness. Right lower leg: Edema (+1 pitting) present. Left lower leg: Edema (+1 pitting) present. Comments: MUSCLE STRENGTH: 0/5 for eversion L, 3/5 for dorsiflexion L, 5/5 for plantarflexion and inversion L. Flexor/Extensor at digits L is 0/5. 5/5 for all pedal groups tested on the right.. DEFORMITIES: Digital contractures of toes are noted 2-5 b/l. R 3rd digit is mallet toe. Arthritic changes are also noted in the feet with diminished forefoot fat padding. ROM: Limited subtalar joint motion on the left and right normal ankle joint range of motion evident. Feet: Comments: Last diabetic foot exam: 01/05/2024 Skin: General: Skin is warm. Capillary Refill: Capillary refill takes 2 to 3 seconds. Findings: No bruising or erythema. Comments: SKIN FINDINGS:Hemosiderin deposits noted b/l LE. There is thinning of skin. Webspaces are clean and dry. Diminished skin turgor, thinning of the skin with subcutaneous atrophy. HYPERKERATOSIS:callus sub 4th met head L mild, well maintained at home with dermal therapy and pumice stone. Lateral 4th digit R foot there is only mild callus. NAIL PATHOLOGY:Nail 1 L is absent. Nail 1 R is orange and brown, lysed from medial distal nail bed, 5mm thick, crumbly, fungal. Nails 2 b/l are yellow, brown, elongated, fungal, 3mm thick. Neurological: Mental Status: He is alert and oriented to person, place, and time. Comments: VIBRATORY:absent at IPJ and MPJ, diminished at medial malleolus and patella b/l. SEMMES-SASCHA 5.07 MONOFILAMENT: absent at 4/10 sites b/l Psychiatric: Mood and Affect: Mood normal. Behavior: Behavior normal. Modifier: Q9, 51530 Assessment/Plan ICD-10-CM 1. Onychomycosis B35.1 2. Diabetes mellitus with peripheral angiopathy ([facility]) E11.51 3. Type II or unspecified type diabetes mellitus with neurological manifestations, not stated as uncontrolled(250.60) ([facility]) E11.49 4. 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 All nails debrided in thickness and length. Instrumentation utilized: large and small nail nipper and curette and power bur. Discuss various treatments options including topical therapy vs oral medication. At this time the patient defers these options. Relief of discomfort noted by patient. All nails debrided appropriately. Web spaces inspected and found to be free of disease and ulceration. Shoes inspected and hygiene discussed. Advised to RTO on as needed basis This note was created with the assistance of a speech recognition program. While intending to generate a timely document that accurately reflects the content of the visit, no guarantee can be provided that every grammatical or spelling mistake has been or will be identified or corrected. Thank you for your understanding. Amisha Monzon DPM documented in this encounter [facility] 10-16-2024 History of Present illness Narrative Images from the original note were not included. Subjective Patient ID: Josselyn Fox is a 84 y.o. male who presents for DM Foot Care (Josselyn Fox is a 84 y.o. male who presents today with his daughter for diabetic foot care, he has no other concerns today /BS: 140 A1C: 7.9 /Lv Dr. Rosario 08-20-2024/SS: 11). HPI Patient presents complaining of elongated, thick, fungal nails. He is requesting nail debridement today. He denies any other pedal complaints. Review of Systems Medications Current Outpatient Medications: amLODIPine (Norvasc) 5 MG tablet, TAKE 1 TABLET DAILY, Disp: 100 tablet, Rfl: 3 aspirin EC 81 MG EC tablet, Take 81 mg by mouth in the morning., Disp: , Rfl: carvedilol (Coreg) 25 MG tablet, TAKE 1 TABLET EVERY MORNING AND 1 TABLET EVERY EVENING WITH MEALS, Disp: 200 tablet, Rfl: 3 Continuous Glucose Sensor (FreeStyle Jason 2 Sensor) misc, 1 Units every 14 (fourteen) days, Disp: 6 each, Rfl: 3 desonide (DesOwen) 0.05 % cream, Apply topically 2 (two) times a day, Disp: 60 g, Rfl: 3 ferrous sulfate 325 (65 Fe) MG tablet, Take 325 mg by mouth in the morning. Take with meals., Disp: , Rfl: furosemide (Lasix) 20 MG tablet, Take 1 tablet (20 mg) by mouth Daily as needed (Swelling)., Disp: 100 tablet, Rfl: 1 insulin aspart protamine-insulin aspart (NovoLOG MIX 70/30) (70-30) 100 UNIT/ML injection, Inject 100 Units under the skin in the morning and 100 Units in the evening. Inject with meals., Disp: 180 mL, Rfl: 3 insulin syringe-needle U-100 (BD Insulin Syringe U/F) 31G X 5/16 0.3 mL misc, every 12 (twelve) hours., Disp: , Rfl: insulin syringe-needle U-100 (BD Insulin Syringe U/F) 31G X 5/16 0.5 mL misc, Used as directed with insulin., Disp: 90 each, Rfl: 0 ipratropium (Atrovent) 0.06 % nasal spray, Administer 2 sprays into each nostril in the morning and 2 sprays at noon and 2 sprays in the evening and 2 sprays before bedtime., Disp: 15 mL, Rfl: 11 Lancets Ultra Thin 30G misc, 2 (two) times a day., Disp: , Rfl: losartan-hydroCHLOROthiazide (Hyzaar) 100-25 MG tablet, Take 1 tablet by mouth Daily, Disp: 100 tablet, Rfl: 3 metFORMIN (Glucophage) 500 MG tablet, Take 1 tablet (500 mg) by mouth in the morning and 1 tablet (500 mg) in the evening. Take with meals., Disp: 200 tablet, Rfl: 3 Multiple Vitamins-Minerals (PreserVision AREDS) capsule, every 12 (twelve) hours., Disp: , Rfl: simvastatin (Zocor) 40 MG tablet, Take 1 tablet (40 mg) by mouth at bedtime for 7 days, Disp: 7 tablet, Rfl: 1 Allergies Clonidine, Lisinopril, and Clonidine derivatives Past Surgical History Past Surgical History: Procedure Laterality Date CATARACT EXTRACTION Left 2013 CATARACT EXTRACTION Right 2010 CATARACT EXTRACTION W/ INTRAOCULAR LENS IMPLANT cataract extraction and lens implantation COLONOSCOPY COLONOSCOPY 04/2010 Colonoscopy with Polypectomy CORONARY ARTERY BYPASS GRAFT 2007 KNEE SURGERY 2011 Knee replacement LUMBAR DISC SURGERY 10/23/2013 Left L4-5 micro disc Surgery herniated disc Dr. Perez TONSILLECTOMY US PROSTATE WITH BIOPSY 03/23/2018 Prostate Ultrasound with Needle Biopsy Dr. Peterson Family History Family History Problem Relation Name Age of Onset Alzheimer's disease Mother Heart disease Mother Cancer Mother Cancer Father No Known Problems Sister 1 No Known Problems Brother 6 Diabetes Other spouse Hypertension Sibling Heart disease Sibling Stroke Sibling Cancer Sibling Diabetes Sibling No Known Problems Daughter 2 No Known Problems Son 2 Objective Physical Exam Cardiovascular: Comments: Pedal pulses: DP 1/4 R 0/4 L bilateral, PT 2/4 bilateral. Skin temp is warm to cool. Varicosities: absent Hair growth: absent Pulmonary: Effort: Pulmonary effort is normal. Musculoskeletal: General: No tenderness. Right lower leg: Edema (+1 pitting) present. Left lower leg: Edema (+1 pitting) present. Comments: MUSCLE STRENGTH: 0/5 for eversion L, 3/5 for dorsiflexion L, 5/5 for plantarflexion and inversion L. Flexor/Extensor at digits L is 0/5. 5/5 for all pedal groups tested on the right.. DEFORMITIES: Digital contractures of toes are noted 2-5 b/l. R 3rd digit is mallet toe. Arthritic changes are also noted in the feet with diminished forefoot fat padding. ROM: Limited subtalar joint motion on the left and right normal ankle joint range of motion evident. Feet: Comments: Last diabetic foot exam: 01/05/2024 Skin: General: Skin is warm. Capillary Refill: Capillary refill takes 2 to 3 seconds. Findings: No bruising or erythema. Comments: SKIN FINDINGS:Hemosiderin deposits noted b/l LE. There is thinning of skin. Webspaces are clean and dry. Diminished skin turgor, thinning of the skin with subcutaneous atrophy. HYPERKERATOSIS:callus sub 4th met head L mild, well maintained at home with dermal therapy and pumice stone. Lateral 4th digit R foot there is only mild callus. NAIL PATHOLOGY:Nail 1 L is absent. Nail 1 R is orange and brown, lysed from medial distal nail bed, 5mm thick, crumbly, fungal. Nails 2 b/l are yellow, brown, elongated, fungal, 3mm thick. Neurological: Mental Status: He is alert and oriented to person, place, and time. Comments: VIBRATORY:absent at IPJ and MPJ, diminished at medial malleolus and patella b/l. SEMMES-SASCHA 5.07 MONOFILAMENT: absent at 4/10 sites b/l Psychiatric: Mood and Affect: Mood normal. Behavior: Behavior normal. Modifier: Q9, 50541 Assessment/Plan ICD-10-CM 1. Onychomycosis B35.1 2. Diabetes mellitus with peripheral angiopathy ([facility]) E11.51 3. Type II or unspecified type diabetes mellitus with neurological manifestations, not stated as uncontrolled(250.60) ([facility]) E11.49 Conservative and palliative care implemented as per request. Under aseptic technique all nails debrided with large and small nail nippers, curette and power stacey. Onychodebridement in length and thickness with the goals of relief of pain, reducing risks of infection, ulceration or pain. Well tolerated and expresses appreciation for care given. Feet inspected and hygiene discussed This note was created with the assistance of a speech recognition program. While intending to generate a timely document that accurately reflects the content of the visit, no guarantee can be provided that every grammatical or spelling mistake has been or will be identified or corrected. Thank you for your understanding. Amisha Monzon DPM documented in this encounter [facility] 10-03-2024 History of Present illness Narrative Images from the original note were not included. Myra Fox is a 84 y.o. male who presents for the following: Excision. Location: right forarm posterior Date of biopsy: 07/05/2024 Diagnosis: Superficial basal cell carcinoma Patient was scheduled for excision today. All pertinent medical history, medications, and allergies were reviewed. General Exam: alert, oriented to person, place, and time, normal affect, well appearing uses a cane Accompanied by spouse A focused exam completed based on patient reported problems, see below: 1. Basal cell carcinoma of skin of forearm, right Right Forearm - Posterior Erythematous macule at biopsy site Destr of lesion Complexity: simple Destruction method: cryotherapy Informed consent: discussed and consent obtained Informed consent comment: The risks of the procedure were discussed, including, but not limited to risks of scarring, darker or sanitation supervisor pigmentary changes, recurrence, infection, and incomplete removal Timeout: patient name, date of , surgical site, and procedure verified Timeout comment: Patient and provider identified site. Site was marked. Photo was taken and shown to patient, patient verified this is the correct site. Anesthesia: the lesion was anesthetized in a standard fashion Anesthetic: 1% lidocaine w/ epinephrine 1-100,000 buffered w/ 8.4% NaHCO3 Lesion destroyed using liquid nitrogen: Yes Region frozen until ice ball extended beyond lesion: Yes Cryotherapy cycles: 2 Lesion length (cm): 1 Lesion width (cm): 0.8 Margin per side (cm): 0 Final wound size (cm): 1 Outcome: patient tolerated procedure well with no complications Post-procedure details: wound care instructions given Post-procedure details comment: Post-cryotherapy instructions were given verbally and in writing. The office will be contacted if the lesion fails to resolve despite treatment, or if a side effect develops such as abnormal crusting, scabbing, reddness, discharge, or tenderness. Additional details: Previous accession number: [id number] Discussed that based on the pathology results, there could be residual tumor at these sites despite them looking good on exam today. Discussed treatment options including excision vs cryotherapy. Patient elects for cryotherapy. See procedure note. Notify clinic for signs of recurrence. Next Visit: as scheduled documented in this encounter [facility] 08-20-2024 History of Present illness Narrative Images from the original note were not included. HPI Med Refill Additional comments: Desonide--DM zcak Last edited by Vivian Lamar LPN on 08/20/2024 2:24 PM. Subjective Patient ID: Josselyn Fox is a 84 y.o. male who presents for Diabetes and Med Refill (Desonide--DM zack). Diabetes Mellitus Patient presents for follow up of diabetes. Current symptoms include: hypoglycemia. Patient denies foot ulcerations, nausea, polydipsia, polyuria, and vomiting. Evaluation to date has included: fasting blood sugar, fasting lipid panel, and hemoglobin A1C. Home sugars: 130-180 Diabetes Hypoglycemia symptoms include headaches. Associated symptoms include fatigue. Pertinent negatives for diabetes include no chest pain. Med Refill Associated symptoms include fatigue and headaches. Pertinent negatives include no chest pain. Hypertension Associated symptoms include headaches. Pertinent negatives include no chest pain, palpitations or shortness of breath. Current Outpatient Medications on File Prior to Visit Medication Sig Dispense Refill amLODIPine (Norvasc) 5 MG tablet Take 1 tablet (5 mg) by mouth Daily 90 tablet 3 aspirin EC 81 MG EC tablet Take 81 mg by mouth in the morning. carvedilol (Coreg) 25 MG tablet TAKE 1 TABLET EVERY MORNING AND 1 TABLET EVERY EVENING WITH MEALS 200 tablet 3 Continuous Glucose Sensor (FreeStyle Jason 2 Sensor) misc 1 Units every 14 (fourteen) days 6 each 3 desonide (DesOwen) 0.05 % cream Apply topically 2 (two) times a day 60 g 3 ferrous sulfate 325 (65 Fe) MG tablet Take 325 mg by mouth in the morning. Take with meals. furosemide (Lasix) 20 MG tablet Take 1 tablet (20 mg) by mouth Daily as needed (Swelling). 100 tablet 1 insulin aspart protamine-insulin aspart (NovoLOG MIX 70/30) (70-30) 100 UNIT/ML injection Inject 100 Units under the skin in the morning and 100 Units in the evening. Inject with meals. 180 mL 3 insulin syringe-needle U-100 (BD Insulin Syringe U/F) 31G X 5/16 0.3 mL misc every 12 (twelve) hours. insulin syringe-needle U-100 (BD Insulin Syringe U/F) 31G X 5/16 0.5 mL misc Used as directed with insulin. 90 each 0 Lancets Ultra Thin 30G misc 2 (two) times a day. Lidocaine 4 % patch Apply 1 patch topically in the morning. 90 patch 3 losartan-hydroCHLOROthiazide (Hyzaar) 100-25 MG tablet Take 1 tablet by mouth Daily 100 tablet 3 metFORMIN (Glucophage) 500 MG tablet Take 1 tablet (500 mg) by mouth in the morning and 1 tablet (500 mg) in the evening. Take with meals. 200 tablet 3 Multiple Vitamins-Minerals (PreserVision AREDS) capsule every 12 (twelve) hours. ipratropium (Atrovent) 0.06 % nasal spray Administer 2 sprays into each nostril in the morning and 2 sprays at noon and 2 sprays in the evening and 2 sprays before bedtime. 15 mL 11 simvastatin (Zocor) 40 MG tablet Take 1 tablet (40 mg) by mouth at bedtime for 7 days 7 tablet 1 No current facility-administered medications on file prior to visit. I have reviewed and reconciled the history and medication list with the patient today. Allergies Allergen Reactions Clonidine Other Reaction(s): blisters on skin at patch site Lisinopril Unknown, Cough and Other cough cough cough Clonidine Derivatives Rash Clonidine patch Social History Tobacco Use Smoking status: Former Current packs/day: 0.00 Types: Cigarettes Start date: 09/05/1954 Quit date: 09/05/1989 Years since quittin.9 Smokeless tobacco: Former Tobacco comments: Stopped smoking for >20 years Substance Use Topics Alcohol use: Never Drug use: Never Family History Problem Relation Name Age of Onset Alzheimer's disease Mother Heart disease Mother Cancer Mother Cancer Father No Known Problems Sister 1 No Known Problems Brother 6 Diabetes Other spouse Hypertension Sibling Heart disease Sibling Stroke Sibling Cancer Sibling Diabetes Sibling No Known Problems Daughter 2 No Known Problems Son 2 Past Medical History: Diagnosis Date Basal cell carcinoma (BCC) of dorsum of nose BCC nasal dorsum, Mohs 09/23/2022 Basal cell carcinoma (BCC) of forehead left mid forehead Basal cell carcinoma (BCC) of left confucianist region 09/16/2022 BCC, left confucianist, Mohs Chronic heart failure (CMS/HCC) 03/20/2021 Congestive heart failure (CHF) (CMS/HCC) COVID-19 vaccine administered Covid vaccine ([employer]) x 2. Covid booster Diabetes (CMS/HCC) Flu vaccine need flu shot Hypercholesterolemia (CMS/HCC) Hypertension (CMS/HCC) Prostate cancer (CMS/HCC) 06/2018 Past Surgical History: Procedure Laterality Date CATARACT EXTRACTION Left 2013 CATARACT EXTRACTION Right 2010 CATARACT EXTRACTION W/ INTRAOCULAR LENS IMPLANT cataract extraction and lens implantation COLONOSCOPY COLONOSCOPY 04/2010 Colonoscopy with Polypectomy CORONARY ARTERY BYPASS GRAFT 2007 KNEE SURGERY 2011 Knee replacement LUMBAR DISC SURGERY 10/23/2013 Left L4-5 micro disc Surgery herniated disc Dr. Perez TONSILLECTOMY US PROSTATE WITH BIOPSY 03/23/2018 Prostate Ultrasound with Needle Biopsy Dr. Peterson Visit Vitals BP 130/66 Pulse 61 Ht 6' Wt 241 lb SpO2 96% BMI 32.69 kg/m Smoking Status Former BSA 2.35 m Review of Systems Constitutional: Positive for fatigue. Respiratory: Negative for shortness of breath. Cardiovascular: Negative for chest pain and palpitations. Neurological: Positive for headaches. Objective Physical Exam Constitutional: General: He is not in acute distress. Appearance: He is normal weight. He is not ill-appearing. HENT: Head: Normocephalic and atraumatic. Mouth/Throat: Pharynx: No oropharyngeal exudate or posterior oropharyngeal erythema. Cardiovascular: Rate and Rhythm: Normal rate and regular rhythm. Pulses: Dorsalis pedis pulses are 0 on the right side and 0 on the left side. Posterior tibial pulses are 0 on the right side and 0 on the left side. Heart sounds: Normal heart sounds. No murmur heard. Pulmonary: Effort: Pulmonary effort is normal. No respiratory distress. Breath sounds: Normal breath sounds. No wheezing. Abdominal: General: Bowel sounds are normal. There is no distension. Palpations: Abdomen is soft. Tenderness: There is no abdominal tenderness. There is no guarding. Musculoskeletal: General: No swelling. Right lower leg: Edema present. Left lower leg: Edema present. Neurological: General: No focal deficit present. Mental Status: He is alert and oriented to person, place, and time. Gait: Gait abnormal. Psychiatric: Mood and Affect: Mood normal. Thought Content: Thought content normal. Judgment: Judgment normal. Office Visit on 08/20/2024 Component Date Value Ref Range Status Hemoglobin A1C 08/20/2024 8.6 Final Assessment/Plan Diagnoses and all orders for this visit: Type 2 diabetes mellitus with diabetic polyneuropathy, with long-term current use of insulin ([facility]) - POCT Glycated hemoglobin, total - Poor dietary compliance. He needs to eat better. Offered Dietitian consult, he declined. - This office visit was spent in consultation regarding the patient's current medical problems, differential diagnoses, testing/imaging results, and treatment options. Greater than 25 minutes was spent in [id number] consultation and coordination of care. - Patient is seen for [id number] encounter today and has a current diagnosis of Diabetes. It is medically necessary for patient to have a continuous glucose monitor (CGM) due to current medications and required frequency of testing. Patient (or caregiver) has been sufficiently trained on the CGM system's use. The CGM is being prescribed in accordance with the FDA's indications for use of the system. The CGM will be used to improve glycemic control for the patient and to help prevent problematic hypoglycemic episodes which can lead to increased ER utilization or even . Will continue to monitor the patient routinely to assess benefit and compliance with use of the CGM. Will also monitor HgbA1c routinely. Chronic kidney disease, stage 3a (HCC) ([facility]) Chronic diastolic heart failure ([facility]) Follow up in about 3 months (around 11/18/2024) for DM- A1C. documented in this encounter [facility] 07-05-2024 History of Present illness Narrative Images from the original note were not included. Skin Check Location: Patient requests a skin examination from the waist up Dermatologic history: history of Basal Cell Carcinoma Last visit: 1 year ago Lesions: Location: left lower leg Duration: couple years Quality: itchy Modifying factors: rubs on clothing Associated symptoms: non-healing Treatments: none Established patient All pertinent medical history, medications, and allergies were reviewed. General Exam: alert, oriented to person, place, and time, normal affect, well appearing uses a cane Accompanied by spouse A complete skin exam was offered, pt declined. Areas not examined despite medical recommendation: From the waist down Scalp, Examined , exam limited by hair Head, Face Examined Neck Examined Chest Examined Back Examined Abdomen Examined Right arm Examined Left arm Examined Hands Examined Digits,nails: Examined Lymphatics: Not examined 1. Seborrheic keratosis (4) Arms, Left Lower Leg - Anterior, Scalp, Trunk Stuck on verrucous, wilkes-brown papules and plaques. Patient was counseled regarding these benign growths. Removal is normally not necessary, but they may be removed if they are symptomatic or for cosmetic reasons. 2. Seborrheic keratosis, inflamed Mid Parietal Scalp [place] and brown stuck on verrucous scaly papule with surrounding erythema The patient was informed that symptomatic seborrheic keratoses are benign growths that become inflamed, itchy, tender, traumatized, caught on clothing, or bleed. Symptomatic lesions can be treated with cryotherapy or curretage. Thicker lesions treated with cryotherapy may require more than one treatment. The patient was instructed to notify the office if abnormal redness or tenderness develops at the treatment site. Cryotherapy today, see procedure note. Diagnosis: Inflamed seborrheic keratosis Indication: Inflamed Consent: Verbal consent was obtained and risks were discussed, including, but not limited to risks of scarring, darker or sanitation supervisor pigmentary changes, recurrence, incomplete removal and infection. Method: Liquid nitrogen was used to treat the lesion(s) with two 5-10 second freeze-thaw cycles Number of lesions treated: 1 Post-procedure instructions: Instructions were given orally and in writing. The office will be contacted if the lesion fails to resolve despite treatment, or if a side effect develops such as abnormal crusting, scabbing, redness or tenderness Cryotherapy, skin lesion - Mid Parietal Scalp 3. Actinic keratosis (8) Left Mid [place], Left Superior [place], Left Temporal Scalp, Left Triangular Fossa, Left Zygomatic Area, Mid Tip of Nose, Right Nasal Sidewall, Right Superior [place] Erythematous scaly papules Patient was counseled regarding these sun-induced growths that can develop into squamous cell carcinoma if left untreated. Discussed treatment with cryotherapy. It was emphasized that any treated lesions that fail to resolve should be re-evaluated. Cryotherapy performed today; see procedure note Diagnosis: Actinic keratosis Indication: Precancerous Location: see skin exam Consent: Verbal consent was obtained and risks were discussed, including, but not limited to risks of scarring, darker or sanitation supervisor pigmentary changes, recurrence, incomplete removal and infection. Method: Liquid nitrogen was used to treat the lesion(s) with two 5-10 second freeze-thaw cycles. Eyes were shielded using cotton pad during procedure Number of lesions treated: 8 Post-procedure instructions: Instructions were given orally and in writing. The office will be contacted if the lesion fails to resolve despite treatment, or if a side effect develops such as abnormal crusting, scabbing, redness or tenderness Cryotherapy, skin lesion - Left Mid [place], Left Superior [place], Left Temporal Scalp, Left Triangular Fossa, Left Zygomatic Area, Mid Tip of Nose, Right Nasal Sidewall, Right Superior [place] 4. Neoplasm of unspecified behavior of bone, soft tissue, and skin Right Forearm - Posterior [place] papule Lesion biopsy Type of biopsy: tangential Informed consent: discussed and consent obtained Informed consent comment: The risks and benefits of the biopsy were discussed. Risks include but are not limited to bleeding, infection, scarring, pain, and nerve damage. An opportunity to ask questions prior to the procedure was permitted and all questions were answered. Patient was prepped and draped in usual sterile fashion: area cleansed with alcohol. Anesthesia: the lesion was anesthetized in a standard fashion Anesthetic: 1% lidocaine w/ epinephrine 1-100,000 buffered w/ 8.4% NaHCO3 Instrument used: DermaBlade Hemostasis achieved with: electrodesiccation Outcome: patient tolerated procedure well Outcome comment: The specimen was placed in a prelabeled formalin container to be sent for pathology Post-procedure details: sterile dressing applied and wound care instructions given Post-procedure details comment: Emphasized need to contact clinic for any signs of infection, uncontrollable bleeding, or complications. Dressing type: bandage Additional details: Photo taken Amount of lidocaine used: 0.4 cc Specimen A - Dermatopathology exam Differential Diagnosis: SCC vs ISK Check Margins: No Size of lesion: 1.0 x 08 cm 5. Lentigines Scattered wilkes macules in sun-exposed areas. The patient was informed that lentigines are benign pigmented lesions that occur on sun-exposed and sun-damaged skin. No treatment is necessary. Recommended regular use of broad spectrum sunscreen SPF 30 or higher Next Visit: 1 year, skin check documented in this encounter [facility] 06-07-2024 History of Present illness Narrative Images from the original note were not included. Subjective Patient ID: Josselyn Fox is a 84 y.o. male who presents for DM Foot Care (Pt prsents today with his daughter for diabetic foot care, he has no other concerns today /BS: 150 A1C: 7.9 /Lv Dr. Rosario 05-14-2024/SS: 11). HPI Established patient returns requesting nail debridement. He is with his daughter today. The nails are thick, elongated, fungal. He is unable to trim them effectively at home. Review of Systems Medications Current Outpatient Medications: amLODIPine (Norvasc) 5 MG tablet, Take 1 tablet (5 mg) by mouth Daily, Disp: 90 tablet, Rfl: 3 aspirin EC 81 MG EC tablet, Take 81 mg by mouth in the morning., Disp: , Rfl: carvedilol (Coreg) 25 MG tablet, Take 1 tablet (25 mg) by mouth in the morning and 1 tablet (25 mg) in the evening. Take with meals., Disp: 180 tablet, Rfl: 3 desonide (DesOwen) 0.05 % cream, Apply topically 2 (two) times a day, Disp: 60 g, Rfl: 3 ferrous sulfate 325 (65 Fe) MG tablet, Take 325 mg by mouth in the morning. Take with meals., Disp: , Rfl: furosemide (Lasix) 20 MG tablet, Take 1 tablet (20 mg) by mouth Daily as needed (Swelling)., Disp: 100 tablet, Rfl: 1 insulin aspart protamine-insulin aspart (NovoLOG MIX 70/30) (70-30) 100 UNIT/ML injection, Inject 100 Units under the skin in the morning and 100 Units in the evening. Inject with meals., Disp: 180 mL, Rfl: 3 insulin syringe-needle U-100 (BD Insulin Syringe U/F) 31G X 5/16 0.3 mL misc, every 12 (twelve) hours., Disp: , Rfl: insulin syringe-needle U-100 (BD Insulin Syringe U/F) 31G X 5/16 0.5 mL misc, Used as directed with insulin., Disp: 90 each, Rfl: 0 ipratropium (Atrovent) 0.06 % nasal spray, Administer 2 sprays into each nostril in the morning and 2 sprays at noon and 2 sprays in the evening and 2 sprays before bedtime., Disp: 15 mL, Rfl: 11 Lancets Ultra Thin 30G misc, 2 (two) times a day., Disp: , Rfl: Lidocaine 4 % patch, Apply 1 patch topically in the morning., Disp: 90 patch, Rfl: 3 losartan-hydroCHLOROthiazide (Hyzaar) 100-25 MG tablet, Take 1 tablet by mouth Daily, Disp: 100 tablet, Rfl: 3 metFORMIN (Glucophage) 500 MG tablet, Take 1 tablet (500 mg) by mouth in the morning and 1 tablet (500 mg) in the evening. Take with meals., Disp: 200 tablet, Rfl: 3 Multiple Vitamins-Minerals (PreserVision AREDS) capsule, every 12 (twelve) hours., Disp: , Rfl: simvastatin (Zocor) 40 MG tablet, Take 1 tablet (40 mg) by mouth at bedtime for 7 days, Disp: 7 tablet, Rfl: 1 Allergies Clonidine, Lisinopril, and Clonidine derivatives Past Surgical History Past Surgical History: Procedure Laterality Date CATARACT EXTRACTION Left 2013 CATARACT EXTRACTION Right 2010 CATARACT EXTRACTION W/ INTRAOCULAR LENS IMPLANT cataract extraction and lens implantation COLONOSCOPY COLONOSCOPY 04/2010 Colonoscopy with Polypectomy CORONARY ARTERY BYPASS GRAFT 2007 KNEE SURGERY 2011 Knee replacement LUMBAR DISC SURGERY 10/23/2013 Left L4-5 micro disc Surgery herniated disc Dr. Perez TONSILLECTOMY US PROSTATE WITH BIOPSY 03/23/2018 Prostate Ultrasound with Needle Biopsy Dr. Peterson Family History Family History Problem Relation Name Age of Onset Alzheimer's disease Mother Heart disease Mother Cancer Mother Cancer Father No Known Problems Sister 1 No Known Problems Brother 6 Diabetes Other spouse Hypertension Sibling Heart disease Sibling Stroke Sibling Cancer Sibling Diabetes Sibling No Known Problems Daughter 2 No Known Problems Son 2 Objective Physical Exam Cardiovascular: Comments: Pedal pulses: DP 1/4 R 0/4 L bilateral, PT 2/4 bilateral. Skin temp is warm to cool. Varicosities: absent Hair growth: absent Pulmonary: Effort: Pulmonary effort is normal. Musculoskeletal: General: No tenderness. Right lower leg: Edema (+1 pitting) present. Left lower leg: Edema (+1 pitting) present. Comments: MUSCLE STRENGTH: 0/5 for eversion L, 3/5 for dorsiflexion L, 5/5 for plantarflexion and inversion L. Flexor/Extensor at digits L is 0/5. 5/5 for all pedal groups tested on the right.. DEFORMITIES: Digital contractures of toes are noted 2-5 b/l. R 3rd digit is mallet toe. Arthritic changes are also noted in the feet with diminished forefoot fat padding. ROM: Limited subtalar joint motion on the left and right normal ankle joint range of motion evident. Feet: Comments: Last diabetic foot exam: 01/05/2024 Skin: General: Skin is warm. Capillary Refill: Capillary refill takes 2 to 3 seconds. Findings: No bruising or erythema. Comments: SKIN FINDINGS:Hemosiderin deposits noted b/l LE. There is thinning of skin. Webspaces are clean and dry. Diminished skin turgor, thinning of the skin with subcutaneous atrophy. HYPERKERATOSIS:callus sub 4th met head L mild, well maintained at home with dermal therapy and pumice stone. Lateral 4th digit R foot there is only mild callus. NAIL PATHOLOGY:Nail 1 L is absent. Nail 1 R is orange and brown, lysed from medial distal nail bed, 5mm thick, crumbly, fungal. Nails 2 b/l are yellow, brown, elongated, fungal, 3mm thick. Neurological: Mental Status: He is alert and oriented to person, place, and time. Comments: VIBRATORY:absent at IPJ and MPJ, diminished at medial malleolus and patella b/l. SEMMES-SASCAH 5.07 MONOFILAMENT: absent at 4/10 sites b/l Psychiatric: Mood and Affect: Mood normal. Behavior: Behavior normal. Modifier: N4, [id number] Assessment/Plan ICD-10-CM 1. Type II or unspecified type diabetes mellitus with neurological manifestations, not stated as uncontrolled(250.60) ([facility]) E11.49 2. Diabetes mellitus with peripheral angiopathy ([facility]) E11.51 3. Onychomycosis B35.1 4. Nail dystrophy L60.3 Patient requests debriding of toenails. As per request all 10 nails are debrided. There reduced in thickness and in length. Margins curetted of debris. Feet inspected. Hygiene discussed. Patient relates significant relief of discomfort. Invited to call if questions or problems arise This note was created with the assistance of a speech recognition program. While intending to generate a timely document that accurately reflects the content of the visit, no guarantee can be provided that every grammatical or spelling mistake has been or will be identified or corrected. Thank you for your understanding. Amisha Monzon DPM documented in this encounter [facility] 05-14-2024 History of Present illness Narrative Images from the original note were not included. Subjective Patient ID: Josselyn Fox is a 84 y.o. male who presents for Diabetes. Diabetes Mellitus Patient presents for follow up of diabetes. Current symptoms include: hypoglycemia. Patient denies foot ulcerations, nausea, polydipsia, polyuria, and vomiting. Evaluation to date has included: fasting blood sugar, fasting lipid panel, and hemoglobin A1C. Home sugars: 165-180 Diabetes Hypoglycemia symptoms include headaches. Associated symptoms include fatigue. Pertinent negatives for diabetes include no chest pain. Hypertension Associated symptoms include headaches. Pertinent negatives include no chest pain, palpitations or shortness of breath. Current Outpatient Medications on File Prior to Visit Medication Sig Dispense Refill amLODIPine (Norvasc) 5 MG tablet Take 1 tablet (5 mg) by mouth Daily 90 tablet 3 aspirin EC 81 MG EC tablet Take 81 mg by mouth in the morning. carvedilol (Coreg) 25 MG tablet Take 1 tablet (25 mg) by mouth in the morning and 1 tablet (25 mg) in the evening. Take with meals. 180 tablet 3 desonide (DesOwen) 0.05 % cream Apply topically 2 (two) times a day 60 g 3 ferrous sulfate 325 (65 Fe) MG tablet Take 325 mg by mouth in the morning. Take with meals. furosemide (Lasix) 20 MG tablet Take 1 tablet (20 mg) by mouth Daily as needed (Swelling). 100 tablet 1 insulin aspart protamine-insulin aspart (NovoLOG MIX 70/30) (70-30) 100 UNIT/ML injection Inject 100 Units under the skin in the morning and 100 Units in the evening. Inject with meals. 180 mL 3 insulin syringe-needle U-100 (BD Insulin Syringe U/F) 31G X 5/16 0.3 mL misc every 12 (twelve) hours. insulin syringe-needle U-100 (BD Insulin Syringe U/F) 31G X 5/16 0.5 mL misc Used as directed with insulin. 90 each 0 ipratropium (Atrovent) 0.06 % nasal spray Administer 2 sprays into each nostril in the morning and 2 sprays at noon and 2 sprays in the evening and 2 sprays before bedtime. 15 mL 11 Lancets Ultra Thin 30G misc 2 (two) times a day. Lidocaine 4 % patch Apply 1 patch topically in the morning. 90 patch 3 losartan-hydroCHLOROthiazide (Hyzaar) 100-25 MG tablet Take 1 tablet by mouth Daily 100 tablet 3 metFORMIN (Glucophage) 500 MG tablet Take 1 tablet (500 mg) by mouth in the morning and 1 tablet (500 mg) in the evening. Take with meals. 200 tablet 3 Multiple Vitamins-Minerals (PreserVision AREDS) capsule every 12 (twelve) hours. simvastatin (Zocor) 40 MG tablet Take 1 tablet (40 mg) by mouth at bedtime for 7 days 7 tablet 1 No current facility-administered medications on file prior to visit. I have reviewed and reconciled the history and medication list with the patient today. Allergies Allergen Reactions Clonidine Other Reaction(s): blisters on skin at patch site Lisinopril Unknown, Cough and Other cough cough cough Clonidine Derivatives Rash Clonidine patch Social History Tobacco Use Smoking status: Former Current packs/day: 0.00 Types: Cigarettes Start date: 09/05/1954 Quit date: 09/05/1989 Years since quittin.7 Smokeless tobacco: Former Tobacco comments: Stopped smoking for >20 years Substance Use Topics Alcohol use: Never Drug use: Never Family History Problem Relation Name Age of Onset Alzheimer's disease Mother Heart disease Mother Cancer Mother Cancer Father No Known Problems Sister 1 No Known Problems Brother 6 Diabetes Other spouse Hypertension Sibling Heart disease Sibling Stroke Sibling Cancer Sibling Diabetes Sibling No Known Problems Daughter 2 No Known Problems Son 2 Past Medical History: Diagnosis Date Basal cell carcinoma (BCC) of dorsum of nose BCC nasal dorsum, Mohs 09/23/2022 Basal cell carcinoma (BCC) of forehead left mid forehead Basal cell carcinoma (BCC) of left confucianist region 09/16/2022 BCC, left confucianist, Mohs Chronic heart failure (CMS/HCC) 03/20/2021 Congestive heart failure (CHF) (CMS/HCC) COVID-19 vaccine administered Covid vaccine ([employer]) x 2. Covid booster Diabetes (CMS/HCC) Flu vaccine need flu shot Hypercholesterolemia (CMS/HCC) Hypertension (CMS/HCC) Prostate cancer (CMS/HCC) 06/2018 Past Surgical History: Procedure Laterality Date CATARACT EXTRACTION Left 2013 CATARACT EXTRACTION Right 2010 CATARACT EXTRACTION W/ INTRAOCULAR LENS IMPLANT cataract extraction and lens implantation COLONOSCOPY COLONOSCOPY 04/2010 Colonoscopy with Polypectomy CORONARY ARTERY BYPASS GRAFT 2008 KNEE SURGERY 2012 Knee replacement LUMBAR DISC SURGERY 10/23/2013 Left L4-5 micro disc Surgery herniated disc Dr. Perez TONSILLECTOMY US PROSTATE WITH BIOPSY 03/23/2018 Prostate Ultrasound with Needle Biopsy Dr. Peterson Visit Vitals BP 132/78 Pulse 69 Ht 6' Wt 241 lb SpO2 95% BMI 32.69 kg/m Smoking Status Former BSA 2.35 m Review of Systems Constitutional: Positive for fatigue. Respiratory: Negative for shortness of breath. Cardiovascular: Negative for chest pain and palpitations. Neurological: Positive for headaches. Objective Physical Exam Constitutional: General: He is not in acute distress. Appearance: He is normal weight. He is not ill-appearing. HENT: Head: Normocephalic and atraumatic. Mouth/Throat: Pharynx: No oropharyngeal exudate or posterior oropharyngeal erythema. Cardiovascular: Rate and Rhythm: Normal rate and regular rhythm. Pulses: Dorsalis pedis pulses are 0 on the right side and 0 on the left side. Posterior tibial pulses are 0 on the right side and 0 on the left side. Heart sounds: Normal heart sounds. No murmur heard. Pulmonary: Effort: Pulmonary effort is normal. No respiratory distress. Breath sounds: Normal breath sounds. No wheezing. Abdominal: General: Bowel sounds are normal. There is no distension. Palpations: Abdomen is soft. Tenderness: There is no abdominal tenderness. There is no guarding. Musculoskeletal: General: No swelling. Right lower leg: Edema present. Left lower leg: Edema present. Neurological: General: No focal deficit present. Mental Status: He is alert and oriented to person, place, and time. Gait: Gait abnormal. Psychiatric: Mood and Affect: Mood normal. Thought Content: Thought content normal. Judgment: Judgment normal. Office Visit on 05/14/2024 Component Date Value Ref Range Status Hemoglobin A1C 05/14/2024 7.9 Final Assessment/Plan Diagnoses and all orders for this visit: Type 2 diabetes mellitus with peripheral vascular disease (CMS/HCC) - POCT Glycated hemoglobin, total - Having PM hypos, reduce PM 70/30 to 25 Units (continue 50 Units in AM) - Improve diet. Follow up in about 3 months (around 08/13/2024) for DM- A1C. documented in this encounter [facility] 02-10-2021 Note HNO ID: [id number] Author: Heath Denney MD Service: ? Author Type: Physician Type: Progress Notes Filed: 02/13/2021 2:45 PM Note Text: Radiation Oncology - Follow Up Note PATIENT NAME: Josselyn Fox PATIENT DIAGNOSIS: Prostate adenocarcinoma, initial PSA 6.76, biopsy Fatemeh score 3 + 4 = 7 (grade group 2), clinical stage T1c, N0, M0, stage IIB [T1-T2, N0, M0, PSA <20, GG 2] (AJCC 8th ed.), s/p TRUS Random biopsy. Prostate cancer (C61), 2018 NCCN Risk Group: Favorable Intermediate Risk Group RADIATION SUMMARY: Prostate brachytherapy seed implant, 06/14/18, 145 Gy using I-125 sources, 72 seeds 20 needles 27.94 mCi INTERVAL HISTORY: The patient presents for routine follow-up. Doing well without reported new problems. PSA HISTORY: PSA. (no units) Date Value 02/03/2021 0.06 08/06/2019 0.36 01/15/2019 0.410 07/21/2018 2.53 ALLERGIES Allergen Reactions - Lisinopril Other: See Comments cough - Clonidine Rash Clonidine patch BABY ASPIRIN ORAL Take 2 tablets by mouth daily at bedtime. NOVOLOG MIX 70-30 U-100 INSULN 100 unit/mL (70-30) injection 33 Units beofre breakfast, 37 units before supper Irbesartan-Hydrochlorothiazide 300-12.5 mg per tablet 0.5 tablets once daily. amLODIPine (NORVASC) 5 mg tablet once daily. carvedilol (COREG) 25 mg tablet twice daily. metFORMIN (GLUCOPHAGE) 500 mg tablet twice daily. furosemide (LASIX) 20 mg tablet once daily. simvastatin (ZOCOR) 40 mg tablet once daily. aspirin-calcium carbonate 81 mg-300 mg calcium(777 mg) tab Take 162 mg by mouth once daily. ferrous sulfate 325 mg (65 mg iron) tablet Take 325 mg by mouth once daily. desonide (TRIDESILON) 0.05 % cream Apply to affected area twice daily. REVIEW OF SYSTEMS: D/N = 4/ Hematuria: none Dysuria: none Incontinence: none Urgency: mild Catheter use: No Medications to aid urination: no - Total AUA Score: 12 Bowel movement frequency: 1/day Bowel movement quality: normal Blood per rectum: none PHYSICAL EXAM: BP 121/55 Pulse 65 Temp 36.4 ?C (97.6 ?F) Resp 20 Wt 106.6 kg (235 lb) SpO2 94% BMI 30.58 kg/m? KPS: 100 General appearance: Alert and oriented. No acute distress. Abdomen: Normal abdominal exam, Abdomen soft, non-tender. No masses, organomegaly. Rectal exam def Extremities: No deformities, edema, skin discoloration, clubbing or cyanosis. Lymph Nodes: No cervical lymphadenopathy, No supraclavicular lymphadenopathy, No axillary lymphadenopathy. and No inguinal lymphadenopathy.. Skin: Skin color, texture, turgor normal, no suspicious rashes or lesions. ASSESSMENT/PLAN: Prostate adenocarcinoma, initial PSA 6.76, biopsy Fatemeh score 3 + 4 = 7 (grade group 2), clinical stage T1c, N0, M0, stage IIB [T1-T2, N0, M0, PSA <20, GG 2] (AJCC 8th ed.), s/p TRUS Random biopsy. Prostate cancer (C61), 2018 NCCN Risk Group: Favorable Intermediate Risk Group, status prostate brachytherapy implant 06/14/18 Patient is doing well with stable low PSA. No post radiation problems. He continues close follow-up with Dr. Peterson. Recommend repeat PSA in one year. Signed by: Heath Denney MD cc: MD Dr. Clive Varma II [facility] Evaluation + Plan note No data available for this section [facility] Evaluation note Diagnosis Type II or unspecified type diabetes mellitus with neurological manifestations, not stated as uncontrolled(250.60) (CMS/HCC)- Primary Type II or unspecified type diabetes mellitus with neurological manifestations, not stated as uncontrolled Diabetes mellitus with peripheral angiopathy ([facility]/HCC) Onychomycosis Dermatophytosis of nail Nail dystrophy Other specified disease of nail [facility] Diagnosis Seborrheic keratosis- Primary Seborrheic keratosis, inflamed Actinic keratosis Neoplasm of unspecified behavior of bone, soft tissue, and skin Lentigines [facility]* Diagnosis Type 2 diabetes mellitus with diabetic polyneuropathy, with long-term current use of insulin ([facility])- Primary Chronic kidney disease, stage 3a ([facility]) ([facility]) Chronic diastolic heart failure ([facility]) Chronic diastolic heart failure [facility] Diagnosis Type 2 diabetes mellitus with peripheral vascular disease ([facility]) [facility]* Diagnosis Basal cell carcinoma of skin of forearm, right- Primary [facility]* Diagnosis Onychomycosis- Primary Dermatophytosis of nail Diabetes mellitus with peripheral angiopathy (CMS/HCC) Type II or unspecified type diabetes mellitus with neurological manifestations, not stated as uncontrolled(250.60) (CMS/HCC) Type II or unspecified type diabetes mellitus with neurological manifestations, not stated as uncontrolled [facility] Diagnosis Onychomycosis- Primary Dermatophytosis of nail Diabetes mellitus with peripheral angiopathy (HCC) Type II or unspecified type diabetes mellitus with neurological manifestations, not stated as uncontrolled(250.60) ([facility]) Type II or unspecified type diabetes mellitus with neurological manifestations, not stated as uncontrolled Nail dystrophy Other specified disease of nail [facility] Diagnosis Routine general medical examination at health care facility- Primary Routine general medical examination at a health care facility ACP (advance care planning) Other specified counseling Type 2 diabetes mellitus with diabetic polyneuropathy, with long-term current use of insulin (HCC) Chronic kidney disease, stage 3a (CMS-HCC) Chronic diastolic heart failure (HCC) Chronic diastolic heart failure Coronary artery disease involving [place] coronary artery of [place] heart without angina pectoris [facility] No data available for this section [facility] Progress note No data available for this section [facility] Summary Purpose Family History No Family History Records FoundNo Family History Records FoundNo Family History Records FoundNo Family History Records FoundNo Family History Records FoundNo Family History Records FoundNo Family History Records Found No data available for this section No Family History Records Found Advance Directives No Advanced Directives Records FoundNo Advanced Directives Records FoundNo Advanced Directives Records FoundNo Advanced Directives Records FoundNo Advanced Directives Records FoundNo Advanced Directives Records FoundNo Advanced Directives Records FoundNo Advanced Directives Records Found Additional Source Comments (unrecognized sect ion and content) No Status Records FoundNo Status Records FoundNo Status Records FoundNo Status Records FoundNo Status Records FoundNo Status Records FoundNo Status Records FoundNo Status Records Found INFORMATION SOURCE (unrecogn ized section and content) DATE CREATED AUTHOR 03/01/2018 [facility] DATE CREATED AUTHOR AUTHOR'S ORGANIZ ATION 01/26/2019 [facility] DATE CREATED AUTHOR AUTHOR'S ORGANIZ ATION 04/09/2021 [facility] DATE CREATED AUTHOR AUTHOR'S ORGANIZ ATION 08/25/2021 [facility] DATE CREATED AUTHOR AUTHOR'S ORGANIZ ATION 10/10/2021 [facility] DATE CREATED AUTHOR AUTHOR'S ORGANIZ ATION 11/25/2021 [facility] DATE CREATED AUTHOR AUTHOR'S ORGANIZ ATION 07/02/2022 [facility] DATE CREATED AUTHOR AUTHOR'S ORGANIZ ATION 02/26/2025 [facility] EPIC Care Teams (unrecognized sec tion and content) Financial Analyst Accountant Relationship Specialty Start Date End Date Howie Rosario MD [address] [place] [address] PCP - General Internal Medicine 01/17/23 Howie Rosario MD [address] [place] [address] PCP - ACO Reach 01/27/23 Financial Analyst Accountant Relationship Specialty Start Date End Date Howie Rosario MD [address] [place] [address] PCP - General Internal Medicine 01/17/23 Howie Rosario MD [address] [place] [address] PCP - ACO Reach 01/27/23 Financial Analyst Accountant Relationship Specialty Start Date End Date Howie Rosario MD [address] [place] [address] PCP - General Internal Medicine 01/17/23 Howie Rosario MD [address] [place] [address] PCP - ACO Reach 01/27/23 Financial Analyst Accountant Relationship Specialty Start Date End Date Howie Rosario MD [address] [place] [address] PCP - General Internal Medicine 01/17/23 Howie Rosario MD [address] [place] [address] PCP - ACO Reach 01/27/23 Financial Analyst Accountant Relationship Specialty Start Date End Date Howie Rosario MD [address] [place] [address] PCP - General Internal Medicine 01/17/23 Howie Rosario MD [address] [place] [address] PCP - ACO Reach 01/27/23 Financial Analyst Accountant Relationship Specialty Start Date End Date Howie Rosario MD [address] [place] [address] PCP - General Internal Medicine 01/17/23 Howie Rosario MD [address] [place] [address] PCP - ACO Reach 01/27/23 Financial Analyst Accountant Relationship Specialty Start Date End Date Howie Rosario MD [address] [place] [address] PCP - General Internal Medicine 01/17/23 Howie Rosario MD [address] [place] [address] PCP - ACO Reach 01/27/23 Financial Analyst Accountant Relationship Specialty Start Date End Date Howie Rosario MD [address] [place] [address] PCP - General Internal Medicine 01/17/23 Howie Rosario MD [address] [place] [address] PCP - ACO Reach 01/27/23 Financial Analyst Accountant Relationship Specialty Start Date End Date Howie Rosario MD [address] [place] [address] PCP - General Internal Medicine 01/17/23 Howie Rosario MD [address] [place] [address] PCP - ACO Reach 01/27/23 Financial Analyst Accountant Relationship Specialty Start Date End Date Howie Rosario MD [address] [place] [address] PCP - General Internal Medicine 01/17/23 Howie Rosario MD [address] [place] [address] PCP - ACO Reach 01/27/23 Venecia Bazan RN Clinical [facility] 10/12/24 Financial Analyst Accountant Relationship Specialty Start Date End Date Howie Rosario MD [address] [place] [address] PCP - General Internal Medicine 01/17/23 Howie Rosario MD [address] [place] [address] PCP - ACO Reach 01/27/23 Jyoti Holder LPN [address] [place] [address] 11/27/24 Financial Analyst Accountant Relationship Specialty Start Date End Date Howie Rosario MD [address] [place] [address] PCP - General Internal Medicine 01/17/23 Howie Rosario MD [address] [place] [address] PCP - ACO Reach 01/27/23 Jyoti Holder LPN [address] [place] [address] 11/27/24 Financial Analyst Accountant Relationship Specialty Start Date End Date Howie Rosario MD [address] [place] [address] PCP - General Internal Medicine 01/17/23 Howie Rosario MD [address] [place] [address] PCP - ACO Reach 01/27/23 Jyoti Holder LPN [address] [place] [address] 11/27/24 Reason for Visit (unrecogniz ed section and content) Reason Comments DM Foot Care Pt prsents today wit h his daughter for diabetic foot care, he has no other concerns today BS: 150 A1C: 7.[address] Rosario 05-14-2024SS: 11 Reason Comments Skin Check Suspicious Skin Lesion Reason Comments Diabetes Med Refill Desonide--DM zack Reason Comments Diabetes Reason Comments Excision Reason Comments DM Foot Care Josselyn Fox is a 84 y.o. male who presents today with his daughter for diabetic foot care, he has no other concerns today /BS: 140 A1C: 7.9 /Lv Dr. Rosario 08-20-2024/SS: 11 Reason Comments DM Foot Care Josselyn Fox is a 84 y.o. male who presents today with his daughter. BS: 180 A1C: 7.9 /Lv Dr. Rosario 11/19/2024/SS: 11 Reason Comments Medicare Annual Wellness Visit Subsequen t Pt states he occ has CP - left side lasts a few seconds started 2-3 weeks ago FOR RECORDS PERTAINING TO PATIENTS WHO ARE OR HAVE BEEN ENROLLED IN A CHEMICAL DEPENDENCY/SUBSTANCEABUSE PROGRAM, SOME INFORMATION MAY BE OMITTED. This clinical summary was aggregated from multiple sources. Caution should be exercised in using it in the provision of clinical care. This summary normalizes information from multiple sources, and as a consequence, information in this document may materially change the coding, format and clinical context of patient data. In addition, data may be omitted in some cases. CLINICAL DECISIONS SHOULD BE BASED ON THE PRIMARY CLINICAL RECORDS. [employer] [facility]. provides no warranty or guarantee of the accuracy or completeness of information in this document.
[2025-05-22 17:47] LABS: Hematocrit 34.6 % (42.0-54.0); Hemoglobin 12.0 g/dL (14.0-18.0); Immature Granulocytes Abs Auto 0.02 10^3/uL (0.00-0.03); Immature Granulocytes Pct Auto 0.2 % (0.0-0.5); Lymphocytes Absolute Auto 1.8 10^3/uL (1.2-3.8); Mean Corpuscular HGB Conc 34.7 g/dL (29.9-35.2); Mean Corpuscular Hemoglobin 32.2 pg (25.9-34.0); Mean Corpuscular Volume 92.8 fL (80.0-94.0); Platelet Count 160 10^3/uL (150-450); Red Blood Count 3.73 10^6/uL (4.70-6.10); White Blood Count 8.3 10^3/uL (4.0-11.0)
[2025-05-22] MEDS: CEFAZOLIN SODIUM/DEXTROSE,ISO 1 GM/50 ML PREMIX IV (17:52)
[2025-05-22 18:02] LABS: Anion Gap 12.3; Blood Urea Nitrogen 31.0 mg/dL (7.0-18.0); Calcium 9.2 mg/dL (8.5-10.1); Carbon Dioxide 28.7 mmol/L (21.0-32.0); Chloride 105 mmol/L (98-107); Estimated GFR (African America 54 (>=60 mL/min/1.73m^2); Estimated GFR (Non-African Ame 44 (>=60 mL/min/1.73m^2); Glucose 113 mg/dL (74-106); Potassium 4.0 mmol/L (3.5-5.1); Sodium 142 mmol/L (136-145)
== END 2025-05-22 18:53 | disposition home or self-care (01) ==
PROVIDERS: Emergency Provider Emergency Medicine; PCP Internal Medicine
DX: L03.116 Cellulitis of left lower limb (principal); L03.115 Cellulitis of right lower limb
CPT/HCPCS: 36415; 80048; 85025; 96365; 99284; J0690